=== PATIENT | female | born 1940 | race Caucasian/White ===

== ENCOUNTER 2025-04-10 12:52 | Inpatient (IN) | payer MEDICARE, BC, SELFPAY ==
[2025-04-10] VITALS (8 sets, daily range): BP systolic 145–199; BP diastolic 81–109; BMI 35.3; BMI 35.0
--- NOTE | 2025-04-10 09:53 | ED.GENMED ---
History of Present Illness
General
Chief Complaint: Abdominal Pain
Source: patient
Exam Limitations: none
Time Seen by Provider: 04/10/25 09:46
History of Present Illness
History of Present Illness:
See MDM
Past History
Past History
ED Past Medical History: Fibromyalgia, GERD, HTN, Hypercholesterolemia, NIDDM, Psychiatric (anxiety, Depression) and Other (Back pain, difficulty with balance, lightheadedness, migraines, numbness in the extremities, spinal stenosis, peripheral
vascular disease, edema, colitis, diverticulitis, diverticulosis rectal bleed, colon polyps and auditory dysfunction, physical limitations, polymyalgia rheumatica, anemia)
ED Past Surgical History: Appendectomy, Orthopedic (Laminectomy) and Other (laser treatment to eyes)
Social History
Tobacco: Non-smoker
Alcohol: None
Personal:
Living: alone
Employment: Retired
Family History
Family History: Other (Brother with diabetes, parents with alcoholism)
Phy Exam
Physical Exam
Physical Exam:
See MDM
Course
Orders/Labs/Results
Orders:
Orders
04/10/25 09:14
Electrocardiogram (*1) Urgent
Reason for Study: Tachycardia
EKG- Treatment ONCE
04/10/25 09:52
0.9% Sodium Chloride 1000 ml [Nss] 1,000 ml IV BOLUS
Ketorolac [Toradol] 30 mg IV NOW STA
CR Chest - 2 Views Urgent
Comment:
Reason For Exam: Cough, SOB
US Abdomen Complete/Upper Urgent
Comment:
Reason For Exam: RUQ pain
04/10/25 09:56
Complete Blood Count/With Diff Urgent
Comprehensive Metabolic Panel Urgent
Lipase Urgent
NT-proBNP Urgent
Troponin I Urgent
04/10/25 11:51
Azithromycin 500 mg/250 ml [Zithromax Infusion] 500 mg in 250 ml IV NOW
CefTRIAXone [Rocephin] 1,000 mg IV NOW STA
Abnormal Lab Results
04/10/25
09:56
WBC 14.0 H 10^3/uL
(4.8-10.8)
MCH 32.4 H pg
(27.0-31.0)
Abs Immat Gran (auto) 0.1 H 10^3/uL
(0-0.05)
Absolute Neuts (auto) 12.0 H 10^3/uL
(1.4-6.5)
Absolute Lymphs (auto) 0.9 L 10^3/uL
(1.2-3.4)
Absolute Monos (auto) 0.8 H 10^3/uL
(0.1-0.6)
Immature Gran % 0.9 H %
(0-0.5)
Neutrophils % 86.0 H %
(42.2-75.2)
Lymphocytes % 6.6 L %
(20.5-51.1)
Sodium 134 L mmol/L
(135-145)
Carbon Dioxide 21 L mmol/L
(22-30)
BUN 20 H mg/dl
(7-17)
Glucose 431 H mg/dl
(70-99)
Calcium 10.6 H mg/dl
(8.4-10.2)
Total Bilirubin 1.8 H mg/dl
(0.2-1.3)
04/10/25 09:56
04/10/25 09:56
Vital Signs
Initial and Last Documented VS:
Initial Vital Signs
Temp Pulse Resp BP Pulse Ox
99.4 F 124 18 153/97 91
04/10/25 09:11 04/10/25 09:11 04/10/25 09:11 04/10/25 09:11 04/10/25 09:11
Last Documented Vital Signs
Temp Pulse Resp BP Pulse Ox
99.4 F 112 17 145/81 91
04/10/25 09:11 04/10/25 11:45 04/10/25 11:45 04/10/25 09:34 04/10/25 11:45
MDM/Problems Addressed
Differential Diagnosis Includes:
Note:
CHIEF COMPLAINT(S)
Pain under the right rib area lasting since yesterday.
HISTORY OF PRESENT ILLNESS
The patient is an 84-year-old female presenting with pain under the right breast since yesterday. The onset was sudden, without any clear precipitating factors. The patient has a known history of gallbladder issues but has never been recommended for
gallbladder removal. The patient reports the pain as significant, potentially causing shallow breathing. There are concerns about low oxygen levels possibly due to pain-induced shallow breathing or an atypical pneumonia, although the primary symptom
is pain. The patient confirms a slight cough but denies any significant shortness of breath.
ADDITIONAL HISTORY OBTAINED FROM SOURCES OTHER THAN THE PATIENT
Per the healthcare provider, there is no history of water retention or congestive heart failure issues.
ALLERGIES
The patient reports an allergy to intravenous contrast.
REVIEW OF SYSTEMS
- Respiratory: Mild cough noted.
- Gastrointestinal: Abdominal pain localized under the right breast.
- General: The patient confirms incontinence.
PHYSICAL EXAM
General: Alert, Mildly uncomfortable
Skin: Warm, dry.
Head: Normocephalic, atraumatic
Neck: Appears supple, trachea midline.
Eyes, Ears, Nose, Mouth, and Throat: Oral mucosa moist.
Cardiovascular: No signs of cyanosis
Respiratory: Respirations are non-labored. Mild tachypnea but lungs clear
Abdomen: Non-distended. Point tenderness to right upper quadrant
Musculoskeletal: No deformities
Neurological: No focal neurological deficit observed.
Psychiatric: Cooperative, appropriate mood and affect.
PLAN
The plan includes the administration of intravenous fluids and pain management, starting with Toradol. Further pain management with opioids such as morphine or Dilaudid will be considered if Toradol is ineffective but used cautiously due to
potential exacerbation of gallbladder symptoms. Diagnostic imaging will include an ultrasound of the gallbladder and a chest x-ray to assess for underlying issues. Blood work will also be conducted to assist in diagnosis.
DIFFERENTIAL DIAGNOSIS
The Differential Diagnosis includes, in no particular order and is not limited to:
1. Cholecystitis
2. Gallbladder colic
3. Pneumonia
4. Pleural effusion
5. Hepatitis
6. Rib fracture
7. Kidney stone
8. Peptic ulcer disease
9. Pancreatitis
10. Hepatic abscess
EKG
My independent EKG interpretation is:
- Rhythm: Sinus tachycardia
- Heart Rate: 122 beats per minute
- [place]: Normal
- Abnormalities: No ST elevation
- Additional Findings: Left ventricular hypertrophy (LVH)
CARE-UPDATE
04/10/25 - 11:29
The patient has been diagnosed with pneumonia and will initiate antibiotic therapy. Due to persistent hypoxia requiring supplemental oxygen, admission to the hospital is warranted for further management.
Disposition:
SUMMARY OF ENCOUNTER
The patient presented to the emergency department with sudden pain under the right rib area, which began the previous day. Given the patients history of gallbladder issues and significant pain potentially leading to shallow breathing, there was
concern for low oxygen levels. A diagnosis of multifocal pneumonia was made, likely causing diaphragmatic irritation. The decision was to start the patient on antibiotics due to this diagnosis.
DISPOSITION
Admit
ASSESSMENT
The patient was assessed and diagnosed with multifocal pneumonia, leading to diaphragmatic irritation, contributing to the reported pain and potential hypoxia.
EMERGENCY TREATMENTS ADMINISTERED
Intravenous fluids and pain management with ketorolac (Toradol) were administered. Antibiotic therapy was initiated due to pneumonia.
MANAGEMENT OF THE PATIENTS CARE WAS DISCUSSED WITH
The case was discussed with the hospital team for further management upon admission.
PLAN
The patient will be admitted to the hospital for continued treatment and management of pneumonia with antibiotics and to address the hypoxia requiring supplemental oxygen. Further evaluation and monitoring will occur, with a focus on managing
gallstone-related symptoms, if necessary.
INDEPENDENT REVIEW OF LABS AND INTERPRETATION OF TESTS
- My independent EKG interpretation is: Rhythm: Sinus tachycardia; Heart Rate: 122 beats per minute; [place]: Normal; Abnormalities: No ST elevation; Additional Findings: Left ventricular hypertrophy (LVH).
- My independent interpretation of the ultrasound revealed cholelithiasis without evidence of acute cholecystitis.
MEDICATION RECONCILIATION
Intravenous Toradol was administered for pain management, and antibiotics were started to treat pneumonia. Future medication management will depend on patient response to initial treatments.
MEDICAL DECISION MAKING
- Number and Complexity of Problems Addressed: Chronic conditions affecting care include gallbladder issues. Differential diagnosis includes cholecystitis, gallbladder colic, pneumonia, pleural effusion, hepatitis, rib fracture, kidney stone, peptic
ulcer disease, pancreatitis, and hepatic abscess.
- Data:
- Category 1: Lab tests and imaging were ordered and interpreted independently.
- Category 2: Input obtained from a healthcare provider regarding the patients history.
- Category 3: Management of care discussed with hospital team for admission.
- Risk: Prescription medication was prescribed for pneumonia. Decision to escalate care by admitting the patient due to the complexity and risk of their condition, evidenced by persistent hypoxia and the necessity of hospital-level intervention.
DIAGNOSIS
- Pneumonia, unspecified organism (ICD-10: J18.9)
- Cholelithiasis without obstruction (ICD-10: K80.20)
*Pulse Oximetry
SaO2: 91
Nasal Cannula flow liters per minute: 2
Oxygen Mode of Delivery: Room air
Patient hypoxic: yes
*Critical Care Note
Total Time (30-74mins, 75-104mins- exclusive of procedures): Not Applicable
ED Attending Note
-
Portions of this chart may have been created with voice recognition software.� Occasional wrong word or��sound alike� substitutions may have occurred due to the inherent limitations of voice recognition software.
Discharge Plan
Departure
Patient Disposition: Admit
Date of Disposition: 04/10/25
Time of Disposition: 11:55
Admit to: Telemetry
Presentation/result/management discussed w/ accepting MD/DO: Hospitalist
Discharge Problem:
PNA (pneumonia), Hypoxia, Cholelithiasis
Prescriptions:
No Action
atorvastatin 10 MG tablet
10 mg PO HS
famotidine 40 MG tablet
40 mg PO BID
escitalopram oxalate 10 MG tablet
10 mg PO DAILY
losartan 50 MG tablet
50 mg PO BID
carvedilol 12.5 MG tablet
6.25 mg PO BID
glipizide 5 MG tablet extended release 24hr
5 mg PO BID
loratadine 10 MG tablet
10 mg PO DAILY
olopatadine [Pataday] 2.5 ML drops
1 drp BOTH EYES DAILY PRN (Reason: dry eye)
multivitamin with folic acid [Tab-A-Monica] 1 TABLET tablet
1 tab PO DAILY
ibuprofen 200 MG tablet
400 mg PO Q4HPRN PRN (Reason: mild pain)
acetaminophen 325 MG tablet
650 mg PO Q4HPRN PRN (Reason: mild pain)
alendronate 70 MG tablet
70 mg PO GILLIAM
amlodipine 5 MG tablet
5 mg PO DAILY
docusate sodium 100 MG capsule
100 mg PO BIDPRN PRN (Reason: constipation)
ciprofloxacin HCl [Cipro] 500 mg tablet
500 mg PO BID 10 Days Qty: 20 0RF
metronidazole 500 mg tablet
500 mg PO Q8H 10 Days Qty: 30 0RF
Referrals:
Amaya Braswell MD [Family Provider, Internal Medicine]
Interventions
Interventions:
*Risk Screen - Suicide Last Done: 04/10/25 09:14
*General Assessment Last Done: 04/10/25 09:35
*Neglect/Abuse Screening Last Done: 04/10/25 09:14
*ED- Fall Risk Assessment Last Done: 04/10/25 09:35
*ED COVID-19 Vaccine History Last Done: 04/10/25 09:35
LI-Zjkopb-Hpkkukkmfz Assessment Last Done: 04/10/25 09:35
Discharge Date and Time
Print Language: BERMUDIAN
[2025-04-10] MEDS: TORADOL 30 MG IV (09:57)
[2025-04-10] MEDS: NSS 1000 IV ×2 (09:58→18:30)
[2025-04-10 10:06] LABS: Hematocrit 41.5 % (37.0-47.0); Hemoglobin 14.3 g/dL (12.0-16.0); Mean Corp Hgb Conc. 34.5 g/dL (33.0-37.0); Mean Corpuscular Volume 94.1 fL (81.0-99.0); Nucleated Red Blood Cells % 0 %; Platelet Count 192 10^3/uL (130-400); Red Cell Dist. Width 13.1 % (11.5-14.5)
[2025-04-10 11:27] LABS: ALT (SGPT) 21 U/L (0-35); AST (SGOT) 22 U/L (14-36); Albumin 3.9 g/dl (3.5-5.0); Alkaline Phosphatase 116 U/L (38-126); Blood Urea Nitrogen 20 mg/dl (7-17); Calcium 10.6 mg/dl (8.4-10.2); Carbon Dioxide 21 mmol/L (22-30); Chloride 103 mmol/L (98-107); Estimated Creatinine Clearance 45 ml/min; Glucose 431 mg/dl (70-99); Lipase 54 U/L (23-300); Potassium 4.5 mmol/L (3.5-5.1); Sodium 134 mmol/L (135-145); Total Protein 7.4 g/dl (6.3-8.2); eGFR 54.87
[2025-04-10 11:43] LABS: Troponin I 0.024 ng/ml
[2025-04-10] MEDS: ZITHROMAX INFUSION 250 IV (11:55)
[2025-04-10] MEDS: ROCEPHIN 1000 MG IV (11:55)
--- NOTE | 2025-04-10 12:11 | HPS.HSE ---
Family Physician
-
Family Physician: Amaya Braswell
Chief Complaint
-
Right Sided Chest Pain
History of Present Illness
Patient is an 84 y/o female past medical history of peripheral vascular disease, diabetes mellitus, hypertension, anxiety/depression and cognitive impairment who presents with right sided chest pain. Patient reports pain staretd yesterday under her
right breast. She reports pain is much worse when she takes a deep breath. She reports some shortness of breath due to the pain. She reports cough but is not very productive (one episode of green mucus yesterday). She denies fevers, sweats or
chills.
Medical History
Past Medical History
Past Medical History: Reports Other
Additional Past Medical History:
Peripheral Vascular Disease
Diabetes Mellitus, Type II
Essential Hypertension
Hyperlipidemia
Anxiety/Depression
Cognitive Impairment
GERD
Polymyalgia Rheumatica
Past Surgical History: Reports Other
Additional Past Surgical History:
Right Nephrectomy
Left Total Knee Replacement
Laminectomy
Appendectomy
Social History
Tobacco: Non-smoker
Alcohol: None
Family History
Family History: Not pertinent
Allergies / Home Medications
Allergies reflects when Allergies were last updated in [employer].
Home Medications with original date entered in [employer]
Allergy/Medication List:
Allergies
Allergy/AdvReac Type Severity Reaction Status Date / Time
amoxicillin trihydrate (From Allergy upset Verified 01/21/23 10:42
Augmentin) stomach
ampicillin Allergy Itching Verified 01/21/23 10:42
Iodinated Contrast Media Allergy DYE FOR Verified 01/21/23 10:42
(Iodinated Contrast Media - MRI
IV Dye) -ANAPHYLAXIS
latex Allergy Itching Verified 01/21/23 10:42
lisinopril Allergy Coughing Verified 01/21/23 10:42
potassium clavulanate (From Allergy Upset Verified 01/21/23 10:42
Augmentin) stomach
Opofxci-NZD-YlW Reductase Allergy Body aches Verified 01/21/23 10:42
Inhibitor (Kodwwan-Cmo-Ved
Reductase Inhibitor)
environmental Allergy nasal Uncoded 05/11/21 16:39
congestions
Home Medications
atorvastatin 10 mg tablet 10 mg PO HS High cholesterol 06/22/15
escitalopram oxalate 10 mg tablet 20 mg PO DAILY Mental Health/Anxiety 06/22/15
famotidine 40 mg tablet 40 mg PO BID Gastrointestinal issue 06/22/15
losartan 50 mg tablet 50 mg PO BID Blood pressure 09/02/19
glipizide 5 mg tablet, extended release 24 hr 5 mg PO BID Diabetes 06/16/20
alendronate 70 mg tablet 70 mg PO GILLIAM bone health 04/17/21
docusate sodium 100 mg capsule 100 mg PO DAILYPRN PRN constipation 04/17/21
acetaminophen 500 mg tablet 1,000 mg PO DAILYPRN PRN mild pain 04/10/25
amlodipine 5 mg tablet 5 mg PO DAILY 04/10/25
carvedilol 6.25 mg tablet 6.25 mg PO BID 04/10/25
furosemide 20 mg tablet 20 mg PO DAILY 04/10/25
gabapentin 100 mg capsule 100 mg PO DAILY 04/10/25
ketotifen fumarate 0.025 % (0.035 %) eye drops (Zaditor) 1 drp ophthalmic (eye) DAILYPRN PRN itchy eyes 04/10/25
solifenacin 5 mg tablet 5 mg PO DAILY 04/10/25
therapeutic multivitamin 1 tab PO DAILY 04/10/25
Review of Systems
-
A 12 point ROS was completed and negative except as noted: Yes
Constitutional: Denies Fever or Chills
Respiratory: Reports See HPI
Cardiac: Denies Palpitations
Abdomen/GI: Denies Abdominal Pain, Nausea or Vomiting
Physical Exam
Vital Signs
Vital Signs
Temp Pulse Resp BP Pulse Ox
99.4 F 112 17 145/81 91
04/10/25 09:11 04/10/25 11:45 04/10/25 11:45 04/10/25 09:34 04/10/25 11:45
Physical Exam
General: Comfortable and Conversant
HEENT: Anicteric, Moist mucous membranes and Oxygen (Nasal Cannula)
Respiratory: Rales (Faint rales on the right) and Decreased Breath Sounds
Cardiac: S1/S2, Regular Rhythm and Tachycardia
GI: Soft and Non Tender
Genito-urinary: Clear Urine (Slight dark in color)
Musculoskeletal: No Clubbing and No Cyanosis
Skin: Warm and Dry
Neuro: Awake, Alert and Nonfocal/grossly intact
Psych: Calm
Laboratory Results
-
04/10/25 09:56
04/10/25 09:56
Laboratory Results
Total Bilirubin 1.8 mg/dl (0.2-1.3) H 04/10/25 09:56
AST 22 U/L (14-36) 04/10/25 09:56
ALT 21 U/L (0-35) 04/10/25 09:56
Alkaline Phosphatase 116 U/L (38-126) 04/10/25 09:56
Troponin I 0.024 ng/ml 04/10/25 09:56
Lipase 54 U/L (23-300) 04/10/25 09:56
Chest X-Ray:
Parenchymal airspace opacity within the right upper lobe and right middle lobe, most likely representing pneumonia.
Abdomen Ultrasound:
Cholelithiasis. No sonographic findings to suggest acute cholecystitis. No evidence of biliary ductal dilation.
Hepatomegaly with fatty infiltration the liver.
Data Reviewed
-
Diagnostic Radiology: Report Reviewed by me
Lab Data: Labs Reviewed by me
Impression/Plan
-
Sepsis / Acute Hypoxic Respiratory Insufficiency secondary to Pneumonia
-Continue supplemental oxygen
-Continue IVFs
-Continue ceftriaxone and azithromycin
-Check COVID
Diabetes Mellitus, Type II with Hyperglycemia
-Initial sugar in ED 431 - Give Novolog 10 units SC Now
-Patient's home medication list indicates Glipizide 5mg BID - However this medication has not been filled since May 2024
-Will resume Glipizide 5mg BID
-Check HgbA1c
-Monitor sugars and continue coverage insulin
Chronic Hypercalcemia
-Calcium level seems stable compared to previous
-Check Intact PTH
Essential Hypertension
-Continue Amlodipine, Coreg and Losartan with hold parameters
Hyperlipidemia
-Continue atorvastatin
Cognitive Impairment
-Monitor for mood/behavior changes during hospitalization
Anxiety / Depression
-Continue Lexapro
GERD
-Continue Famotidine
DVT proph: Lovenox
Code Status: Limited DNR - NO CPR, OK for Intubation is breathing worsens
--- NOTE | 2025-04-10 12:56 | W.PN.UPDATE ---
Update Note
Progress Note Update
This is an addendum to H&P written by Violeta Alston on 04/10/2025. �Patient seen and examined independently with PA.
84-year-old female past medical history of diabetes, hypertension, hyperlipidemia, fibromyalgia, polymyalgia rheumatica, GERD, anxiety/depression, migraines, spinal stenosis, peripheral artery disease, diverticulosis, cognitive impairment,
hypercalcemia, chronic amatory dysfunction, presenting for right-sided pleuritic chest pain with cough.
Patient states that she is taking glipizide twice a day but medication has not been filled as per records.�
Tachycardic on examination. �EKG shows sinus tachycardia.
Labs show leukocytosis. �Cardiac BNP 1700. �Troponin 0.024. Blood sugar 400s.�
Chest x-ray shows parenchymal airspace opacity within the right upper lobe and right middle lobe likely pneumonia.
Patient with sepsis secondary to right upper lobe pneumonia. �IV fluids. �Check COVID. �Ceftriaxone/azithromycin.
Check a1c and start ISS for now given possible glipizide noncompliance.�
--- NOTE | 2025-04-10 12:57 | CM ---
CM reviewed chart and met with pt bedside in ED. Lives alone in 2 story home, no OLESYA from garage, 1 step to BR, has stair glide to second floor BR.
Independent in ADLs and personal care, uses cane for ambulation in home and RW for longer distances.
Currently on 2 L NC, does not have home O2.
No hx SNF, Hx [facility] in past.
PCP: Georgia Braswell
Pharmacy: [address] [facility]
CM will continue to follow for any discharge planning needs.
[2025-04-10] MEDS: NOVOLOG vial 10 UNITS SC (13:02)
[2025-04-10 16:50] LABS: Glucose - Point of Care 250 mg/dl (70-99)
--- NOTE | 2025-04-10 17:00 | PTCARENOTE ---
1615 Pt arrived from ER via stretcher,alert and oriented x 3. Pt c/o shortness of breath and mention having some pain under right breast area,
when takes deep breath in.
Pt's pulse ox 93% on O2 4L via n/c. Noted BP 199/97, on heart monitor (heart rate 128). Pt mention has not taken her BP meds this am prior to ER.
Dr. Conn notified and ordered Norvasc 5 mg po x 1 now. Recheck BP manual 160/90, continue to monitor pt closely.
[2025-04-10 17:18] LABS: COVID-19 Antigen Negative (Negative)
[2025-04-10] MEDS: NORVASC 5 MG PO (17:20)
[2025-04-10] MEDS: LOVENOX 40 MG SC (18:29)
[2025-04-10] MEDS: TYLENOL 650 MG PO ×2 (18:31→23:29)
[2025-04-10] MEDS: NOVOLOG FLEXPEN-MODERATE RESISTANCE 5 UNITS SC (18:36)
[2025-04-10] MEDS: COREG 6.25 MG PO (19:59)
[2025-04-10] MEDS: MUCINEX 600 MG PO (19:59)
[2025-04-10] MEDS: GLUCOTROL XL (EXTENDED RELEASE) 5 MG PO (19:59)
[2025-04-10] MEDS: LIPITOR 10 MG PO (20:00)
[2025-04-10] MEDS: COZAAR 50 MG PO (20:00)
[2025-04-10 21:21] LABS: Glucose - Point of Care 265 mg/dl (70-99)
[2025-04-10] MEDS: MORPHINE SULFATE 1 MG IV (21:54)
[2025-04-11] VITALS (8 sets, daily range): BP systolic 99–174; BP diastolic 65–94; PULSE 102; O2SAT 92; BMI 35.1
[2025-04-11] MEDS: NSS 1000 IV ×3 (01:43→21:45)
[2025-04-11] MEDS: TYLENOL 650 MG PO ×2 (03:16→15:02)
[2025-04-11] MEDS: SAFETUSSIN DM (SUGAR/ALCOHOL FREE) 100 MG PO ×2 (03:48→18:08)
[2025-04-11 05:59] LABS: Hematocrit 35.3 % (37.0-47.0); Hemoglobin 12.2 g/dL (12.0-16.0); Mean Corp Hgb Conc. 34.6 g/dL (33.0-37.0); Mean Corpuscular Volume 95.1 fL (81.0-99.0); Platelet Count 150 10^3/uL (130-400); Red Cell Dist. Width 13.1 % (11.5-14.5)
[2025-04-11 06:25] LABS: Blood Urea Nitrogen 18 mg/dl (7-17); Calcium 9.2 mg/dl (8.4-10.2); Carbon Dioxide 23 mmol/L (22-30); Chloride 111 mmol/L (98-107); Estimated Creatinine Clearance 49 ml/min; Glucose 250 mg/dl (70-99); Magnesium 2.1 mg/dl (1.6-2.3); Potassium 4.1 mmol/L (3.5-5.1); Sodium 137 mmol/L (135-145); eGFR > 60.00
[2025-04-11 06:36] LABS: Vitamin D, 25-OH*** 20.8 ng/mL (30-80)
[2025-04-11 08:23] LABS: Glucose - Point of Care 219 mg/dl (70-99)
[2025-04-11] MEDS: MUCINEX 600 MG PO ×2 (08:40→21:48)
[2025-04-11] MEDS: PEPCID 20 MG PO (08:40)
[2025-04-11] MEDS: COZAAR 50 MG PO ×2 (08:40→21:48)
[2025-04-11] MEDS: NORVASC 5 MG PO (08:40)
[2025-04-11] MEDS: LEXAPRO 20 MG PO (08:40)
[2025-04-11] MEDS: ZITHROMAX 500 MG PO (08:40)
[2025-04-11] MEDS: NEURONTIN 100 MG PO (08:40)
[2025-04-11] MEDS: GLUCOTROL XL (EXTENDED RELEASE) 5 MG PO ×2 (08:40→21:48)
[2025-04-11] MEDS: COREG 6.25 MG PO ×2 (08:40→21:46)
[2025-04-11] MEDS: NOVOLOG FLEXPEN-MODERATE RESISTANCE 3 UNITS SC ×2 (09:41→18:07)
[2025-04-11 11:00] LABS: Glycohemoglobin (HgbA1c) 8.7 % (4.0-5.6)
[2025-04-11] MEDS: ROCEPHIN 1000 MG IV (12:22)
[2025-04-11] MEDS: STERILE WATER FOR INJECTION 10 ML IV (12:22)
[2025-04-11 12:38] LABS: Glucose - Point of Care 268 mg/dl (70-99)
[2025-04-11] MEDS: NOVOLOG FLEXPEN-MODERATE RESISTANCE 5 UNITS SC (13:17)
--- NOTE | 2025-04-11 14:32 | W.PN.HOSP.TC ---
Addendum entered and electronically signed by Shelton Bhagat MD 04/11/25 17:59:
Also Cholelithiasis without Cholecystitis
Original Note:
Today's Communication/Plan
-
continue Rocephin/Azithromycin
consider pulm or ID consult pending clinical course over next 24-48 hrs
slow IVF
repeat CXR
Assessment / Plan
Assessment / Plan
Sepsis / Acute Hypoxic Respiratory Insufficiency secondary to Pneumonia
-Continue supplemental oxygen, remains on 4 L/M with SaO2 92%
-Continue IVFs
-Continue ceftriaxone and azithromycin
COVID - Negative
recheck CXR in AM
Diabetes Mellitus, Type II with Hyperglycemia
-Initial sugar in ED 431 - Give Novolog 10 units SC Now
-Patient's home medication list indicates Glipizide 5mg BID - However this medication has not been filled since May 2024
-Will resume Glipizide 5mg BID
-HgbA1c 8.7%
-Monitor sugars and continue coverage insulin
glu 219-268, consider adding low dose Lantus
Chronic Hypercalcemia
-Calcium level seems stable compared to previous
-Intact PTH 270.6
Essential Hypertension
-Continue Amlodipine, Coreg and Losartan with hold parameters
Hyperlipidemia
-Continue atorvastatin
Cognitive Impairment
-Monitor for mood/behavior changes during hospitalization
Anxiety / Depression
-Continue Lexapro
GERD
-Continue Famotidine
DVT proph: Lovenox
Code Status: Limited DNR - NO CPR, OK for Intubation is breathing worsens
Call placed and discussed with dgtDarlyn MD
Anticipated Discharge: > 48 hours
Subjective/Interval History
-
Date of Service: April 11, 2025
Awake, alert, conversant
Objective Data
-
Labs:
Laboratory Results
04/11/25
05:15
WBC 9.2
Hgb 12.2
Hct 35.3 L
Plt Count 150 D
Sodium 137
Potassium 4.1
Chloride 111 H
Carbon Dioxide 23
BUN 18 H
Creatinine 0.9
Glucose 250 H
Calcium 9.2
Vital Signs:
Vital Signs
Temp Pulse Resp BP Pulse Ox
98.8 F 111 22 174/88 92
04/11/25 07:30 04/11/25 07:30 04/11/25 07:30 04/11/25 07:30 04/11/25 08:00
I&O
04/10/25 04/11/25 04/12/25
06:59 06:59 06:59
Intake Total 1000 / 1000
Balance 1000 / 1000
Review of Systems
-
History Source: Patient and Family (reviewwed with Darlyn merlos by phone)
Constitutional: Denies Fever
EENT: Reports No Symptoms Reported
Respiratory: Reports Cough
Cardiac: Reports No Symptoms; Denies Chest Pain
Abdomen/GI: Reports No Symptoms
Genitourinary: Reports No Symptoms
Neuro: Reports No Symptoms
Physical Exam
-
General: Well Developed, Well Nourished, No Apparent Distress and Obese
HEENT: Normocephalic, Atraumatic and Moist Mucous Membranes
Respiratory: Decreased Breath Sounds (Rt mid lung)
Cardiac: Regular Rhythm and S1/S2
GI: Soft, Nontender and Nondistended
Musculoskeletal: No Clubbing, No Cyanosis and No Edema
Neuro: Awake, Alert and Oriented
[2025-04-11] MEDS: MORPHINE SULFATE 1 MG IV (17:17)
[2025-04-11 17:28] LABS: Glucose - Point of Care 211 mg/dl (70-99)
[2025-04-11] MEDS: LOVENOX 40 MG SC (18:07)
[2025-04-11 21:48] LABS: Glucose - Point of Care 180 mg/dl (70-99)
[2025-04-11] MEDS: LIPITOR 10 MG PO (21:48)
[2025-04-11] MEDS: TORADOL 15 MG IV (22:38)
[2025-04-12 03:51] VITALS: BP 155/88
[2025-04-12] MEDS: NSS 1000 IV (05:43)
[2025-04-12 06:00] VITALS: BMI 36.8
[2025-04-12 07:32] VITALS: BP 165/90
--- NOTE | 2025-04-12 07:54 | W.PN.HOSP.TC ---
Addendum entered and electronically signed by Loco Ortiz MD 04/12/25 17:09:
I called patient's daughter, Dr. Yamileth Mathis just now and updated her on patient's current management including the fact that we are starting therapeutic Lovenox today. I answered all of her questions and concerns to satisfaction.
Original Note:
Today's Communication/Plan
-
Therapeutic Lovenox
See plan
Assessment / Plan
Assessment / Plan
Physical Exam
General: Well Developed, Well Nourished, No Apparent Distress and Obese
HEENT: Normocephalic, Atraumatic and Moist Mucous Membranes
Respiratory: Decreased Breath Sounds (Rt mid lung), but otherwise clear to auscultation bilaterally
Cardiac: Regular Rhythm and S1/S2
GI: Soft, Nontender and Nondistended. Positive bowel sounds.
Musculoskeletal: No Cyanosis and No Edema
Neuro: Awake, Alert and Oriented
Assessment/Plan
Sepsis / Acute Hypoxic Respiratory Insufficiency secondary to Pneumonia
-Continue supplemental oxygen, remains on 4 L/M with SaO2 92%
-Continue IVFs
-Continue ceftriaxone and azithromycin
-COVID - Negative
-Repeat CXR with persistent pneumonia
-Given elevated D-Dimer, check V/Q scan and start empiric therapeutic Lovenox today
-CT Chest without IV contrast in the morning
Renal Cell Cancer around 2017
History of DVT decades ago when on OCPs
Elevated AST
Elevated ALT
-Not present on admission
-Hold Tylenol for now and recheck AST and ALT
-Abdominal Ultrasound on admission showed hepatomegaly with fatty infiltration the liver and two left hepatic lobe simple cysts.
-Follow CMP
Sinus Tachycardia
-Suspected from pleuritic chest pain, pneumonia
-Given concern for PE, started empiric therapeutic Lovenox
Diabetes Mellitus, Type II with Hyperglycemia
-Initial sugar in ED 431 - Was given Novolog 10 units SC
-Patient's home medication list indicates Glipizide 5mg BID - However this medication has not been filled since May 2024
-Continue Glipizide 5mg BID
-HgbA1c 8.7%
-Monitor sugars and continue coverage insulin
glu [id number], consider adding low dose Lantus
Chronic Hypercalcemia
-Calcium level seems stable compared to previous
-Intact PTH 270.6
Essential Hypertension
-Continue Amlodipine, Coreg and Losartan with hold parameters
Hyperlipidemia
-Continue atorvastatin
Cognitive Impairment
-Monitor for mood/behavior changes during hospitalization
Anxiety / Depression
-Continue Lexapro
GERD
-Continue Famotidine
Cholelithiasis on imaging
DVT proph: Lovenox
Code Status: Limited DNR - NO CPR, OK for Intubation is breathing worsens
Call placed and discussed with dgt, Yamileth Mathis MD
Anticipated Discharge: > 48 hours
Subjective/Interval History
-
Date of Service: April 12, 2025
Patient was seen and examined. She reported continued right-sided pleuritic chest pain, she also reports eating and drinking fine, denied any other new significant symptoms or complaints.
Objective Data
-
Labs:
Laboratory Results
04/12/25
06:00
WBC Pending
Hgb Pending
Hct Pending
Plt Count Pending
Sodium Pending
Potassium Pending
Chloride Pending
Carbon Dioxide Pending
BUN Pending
Creatinine Pending
Glucose Pending
Calcium Pending
Vital Signs:
Vital Signs
Temp Pulse Resp BP Pulse Ox
99.3 F 107 18 155/88 93
04/12/25 03:51 04/12/25 03:51 04/12/25 03:51 04/12/25 03:51 04/12/25 03:51
I&O
04/11/25 04/12/25 04/13/25
06:59 06:59 06:59
Intake Total 1000 / 1000 1460 / 1460
Balance 1000 / 1000 1460 / 1460
[2025-04-12] MEDS: MUCINEX 600 MG PO ×2 (08:50→19:53)
[2025-04-12] MEDS: ZITHROMAX 500 MG PO (08:50)
[2025-04-12] MEDS: LEXAPRO 20 MG PO (08:50)
[2025-04-12] MEDS: GLUCOTROL XL (EXTENDED RELEASE) 5 MG PO ×2 (08:51→19:53)
[2025-04-12] MEDS: NORVASC 5 MG PO (08:51)
[2025-04-12] MEDS: PEPCID 20 MG PO (08:51)
[2025-04-12] MEDS: NEURONTIN 100 MG PO (08:51)
[2025-04-12] MEDS: COZAAR 50 MG PO ×2 (08:52→19:53)
[2025-04-12] MEDS: COREG 6.25 MG PO ×2 (08:52→19:52)
[2025-04-12 09:35] LABS: Hematocrit 35.6 % (37.0-47.0); Hemoglobin 12.2 g/dL (12.0-16.0); Mean Corp Hgb Conc. 34.3 g/dL (33.0-37.0); Mean Corpuscular Volume 96.0 fL (81.0-99.0); Nucleated Red Blood Cells % 0 %; Platelet Count 164 10^3/uL (130-400); Red Cell Dist. Width 13.3 % (11.5-14.5)
[2025-04-12 09:52] LABS: Glucose - Point of Care 246 mg/dl (70-99)
[2025-04-12 10:09] LABS: ALT (SGPT) 145 U/L (0-35); AST (SGOT) 130 U/L (14-36); Blood Urea Nitrogen 18 mg/dl (7-17); Calcium 9.9 mg/dl (8.4-10.2); Carbon Dioxide 22 mmol/L (22-30); Chloride 113 mmol/L (98-107); Estimated Creatinine Clearance 51 ml/min; Glucose 244 mg/dl (70-99); Potassium 3.8 mmol/L (3.5-5.1); Sodium 138 mmol/L (135-145); eGFR > 60.00
[2025-04-12] MEDS: NOVOLOG FLEXPEN-MODERATE RESISTANCE 3 UNITS SC ×2 (10:37→17:22)
[2025-04-12 11:20] VITALS: BP 162/83
--- NOTE | 2025-04-12 12:09 | CM ---
CM reviewed chart, patient seen bedside. CM discussed therapy recommendations of home therapy versus SNF, patient would like to return home upon discharge. Provided patient with local home health agencies, patient agreeable to [facility] to [facility]
liaison with referral. Patient currently on O2, does not wear home O2. CM will continue to follow for all discharge planning needs.
Plan; home with referral to [facility], watch for O2 needs
[2025-04-12 12:25] LABS: Glucose - Point of Care 212 mg/dl (70-99)
[2025-04-12] MEDS: STERILE WATER FOR INJECTION 10 ML IV (12:39)
[2025-04-12] MEDS: ROCEPHIN 1000 MG IV (12:39)
[2025-04-12] MEDS: TYLENOL 650 MG PO (12:44)
--- NOTE | 2025-04-12 13:05 | CON.PUL ---
Consultation
Consultation Request
Date/Time Consultation Requested: 04/12/2025
Date/Time Consultation Performed: 04/12/2025
Requesting Provider: Dr. Myers
Performing Provider: Dr. Calvin Honeycutt
Reason for Consultation: Hypoxemic respiratory failure/Pleuritic type chest pain
Medical History
-
History of Present Illness:
84-year-old woman with past medical history significant for peripheral vascular disease, type 2 diabetes, hypertension, anxiety/depression, cognitive impairment who presents with right-sided chest pain on 04/10/2025. Pain started around the right
breast area the day prior to admission. Pain is sharp and worse with deep inspiration.
Pain is significant with deep inspiration and even palpation.
She reports exertional shortness of breath due to chest pain.
She has a dry cough without hemoptysis. She had 1 episode of green phlegm the last few days.
Denies any fevers, night sweats, chills or prior episodes.
Denies history of clotting.
Not on anticoagulation.
Past Medical History
Past Medical History: Other (See assessment and plan)
Social History
Tobacco: Non-smoker
Alcohol: None
Family History
Family History: Reviewed & Not Pertinent and Other (History of clots in the family)
Allergies / Home Medications
Allergies
Allergy/AdvReac Type Severity Reaction Status Date / Time
amoxicillin trihydrate (From Allergy upset Verified 01/21/23 10:42
Augmentin) stomach
ampicillin Allergy Itching Verified 01/21/23 10:42
Iodinated Contrast Media Allergy DYE FOR Verified 01/21/23 10:42
(Iodinated Contrast Media - MRI
IV Dye) -ANAPHYLAXIS
latex Allergy Itching Verified 01/21/23 10:42
lisinopril Allergy Coughing Verified 01/21/23 10:42
potassium clavulanate (From Allergy Upset Verified 01/21/23 10:42
Augmentin) stomach
Ueghlec-SVD-ZaF Reductase Allergy Body aches Verified 01/21/23 10:42
Inhibitor (Gzsmwwe-Ztd-Zhd
Reductase Inhibitor)
environmental Allergy nasal Uncoded 05/11/21 16:39
congestions
Home Medications
�Medication �Instructions �Recorded �Confirmed �Last Taken �Type
atorvastatin 10 mg tablet 10 mg PO HS High cholesterol 06/22/15 04/10/25 04/09/25 History
escitalopram oxalate 10 mg tablet 20 mg PO DAILY Mental 06/22/15 04/10/25 04/09/25 History
Health/Anxiety
famotidine 40 mg tablet 40 mg PO BID Gastrointestinal issue 06/22/15 04/10/25 04/09/25 History
losartan 50 mg tablet 50 mg PO BID Blood pressure 09/02/19 04/10/25 04/09/25 History
glipizide 5 mg tablet, extended 5 mg PO BID Diabetes 06/16/20 04/10/25 04/09/25 History
release 24 hr
alendronate 70 mg tablet 70 mg PO GILLIAM bone health 04/17/21 04/10/25 04/04/25 History
docusate sodium 100 mg capsule 100 mg PO DAILYPRN PRN constipation 04/17/21 04/10/25 04/09/25 History
acetaminophen 500 mg tablet 1,000 mg PO DAILYPRN PRN mild pain 04/10/25 04/10/25 04/09/25 History
amlodipine 5 mg tablet 5 mg PO DAILY Blood Pressure 04/10/25 04/10/25 04/09/25 History
carvedilol 6.25 mg tablet 6.25 mg PO BID Heart 04/10/25 04/10/25 04/09/25 History
Disease/Condition
furosemide 20 mg tablet 20 mg PO DAILY Fluid 04/10/25 04/10/25 04/09/25 History
Retention/Swelling
gabapentin 100 mg capsule 100 mg PO DAILY Pain 04/10/25 04/10/25 04/09/25 History
ketotifen fumarate 0.025 % (0.035 1 drp ophthalmic (eye) DAILYPRN 04/10/25 04/10/25 Unknown History
%) eye drops (Zaditor) PRN itchy eyes
solifenacin 5 mg tablet 5 mg PO DAILY Urinary Issue 04/10/25 04/10/25 04/09/25 History
therapeutic multivitamin 1 tab PO DAILY Supplement 04/10/25 04/10/25 04/09/25 History
Review of Systems
-
History Source: Patient
All other systems: Negative unless noted
Vitals / Labs / Diagnostic Testing
Vital Signs
Temp Pulse Resp BP Pulse Ox
99.4 F 107 20 162/83 94
04/12/25 11:20 04/12/25 11:20 04/12/25 11:20 04/12/25 11:20 04/12/25 11:20
Lab Data
04/12/25 08:45
04/12/25 08:45
Diagnostic Testing:
Physical Exam
-
HEENT: Normocephalic
Cardiovascular: S1/S2
Respiratory: Non-Labored Respirations
GI: Soft and Non Distended
Neurology: Awake, Alert and No Motor Deficits
Skin: Warm
General: Comfortable
Assessment
-
84-year-old woman with past medical history noted, admitted with right-sided pleuritic type chest pain, leukocytosis. Started on antibiotics on 04/10/2025. There is no reports of fevers or worsening phlegm production. Despite antibiotics
complaining of significant pleuritic type chest pain we were consulted for evaluation/concern for thromboembolic disease. Patient is allergic to dye.
Hypoxemic respiratory insufficiency-shortness of breath-initially on low rate supplemental oxygen mostly weaned off. Continue for comfort.
Right-sided pleuritic type chest pain-differential diagnosis includes pneumonia/pulmonary infarct less likely malignant.
Chest x-ray 04/10/2025 and 04/12/2025:reviewed, Right upper lobe pleural-based infiltrate.
Covid negative
Hyperglycemia
Abnormal LFTs
Cholelithiasis. No sonographic findings to suggest acute cholecystitis. No evidence of biliary ductal dilation.
Hepatomegaly with fatty infiltration the liver.
Conditions present prior admission:
PMR
GERD
Anxiety and depression
Cognitive impairment
Hypertension
Type 2 diabetes
Peripheral vascular disease
History of right nephrectomy
Left total knee replacement
Laminectomy
Prior appendectomy
Assessment and plan:
-
Clinical picture certainly could be related to pneumonia, including the pleuritic type chest pain.
Interestingly, there was rapid resolution of leukocytosis, patient has been afebrile without significant sputum production.
Differential diagnosis may include pulmonary infarct as well.
Sinus tachycardia improved
Not hypotensive
Pulmonary supplemental oxygen for comfort.
No prior history of clots
Patient lives independently and ambulates with a walker.
Denies prior history of pulmonary disease.
-
Agree with echocardiogram to assess RV function
Obtain lower extremity Dopplers
Obtain P-zmexb-dyaf be helpful only if negative. If significantly elevated start empirical Lovenox until clot has ruled out.
Ultimately, if Dopplers are negative patient will likely require VQ scan.
CT of the chest without IV contrast will be helpful to evaluate lung parenchyma better. Will also order once LE Doppler performed.
-
Not unreasonable to continue antibiotics for now to treat Community acquired pneumonia.
Most recent chest x-ray without pneumothorax, pleural effusion. Stable pleural-based infiltrate 04/12/2025
No significant phlegm production
Relatively clear lung exam
Follow fever curve
Follow cultures
-
Continue with analgesia per Primary team.
-
Abnormal LFTs: Fatty liver on ultrasound
Benign abdominal exam
Wait for echocardiogram
-
Hypoglycemia per primary team
Chronic hypercalcemia noted
-
DVT prophylaxis with Lovenox
Will follow
--- NOTE | 2025-04-12 13:10 | PTOTSP ---
Speech Therapy
At bedside, oralpharyngeal swallow appeared WFL. Adequate oral containment, good oral clearance, HLE present upon palpation, pt denied globus sensation, no overt s/s of aspiration, no wet vocal quality or breath changes. Pt with acute risk factors
for developing aspiration given diagnosis of sepsis and acute hypoxic respiratory insufficiency secondary to PNA. Most recent CXR is suggestive of pneumonia within the right upper and right middle lobes.
Recommendations:
1. ST to follow for tolerance of regular solids and thin liquids.
2. Meds as best tolerated
3. Standard aspiration precautions
4. Consideration for VSE to rule out silent aspiration if concern for such. No VSE completed.
[ End ]
--- NOTE | 2025-04-12 13:32 | VNURNOTE ---
Home Health Liaison met with patient at bedside to discuss [facility] nurse/therapy, visits, schedule and homebound status. Patient is agreeable and understands that visits at home will be 2-3 x per week to assess and teach medical management. Patient
is aware that [facility] will contact them for start of care in 1-2 days after discharge from . Watching for new home 02 needs.
[facility] referral completed in [facility].
[2025-04-12] MEDS: NOVOLOG FLEXPEN-MODERATE RESISTANCE SC (15:53)
[2025-04-12 16:27] VITALS: BP 159/89
[2025-04-12 16:28] LABS: D-Dimer 3.56 ug/mlFEU (0.00-0.50)
[2025-04-12 17:03] LABS: Glucose - Point of Care 232 mg/dl (70-99)
[2025-04-12] MEDS: LOVENOX 100 MG SC (17:23)
[2025-04-12] MEDS: LIPITOR 10 MG PO (19:53)
[2025-04-12 20:11] VITALS: BP 157/103
[2025-04-12 21:46] LABS: Glucose - Point of Care 240 mg/dl (70-99)
[2025-04-12 23:27] VITALS: BP 176/97
[2025-04-13] VITALS (9 sets, daily range): BP systolic 148–186; BP diastolic 80–102; PULSE 105; O2SAT 93; BMI 37.0
[2025-04-13] MEDS: LOPRESSOR 2.5 MG IV ×2 (04:21→05:07)
[2025-04-13] MEDS: LOVENOX 100 MG SC ×2 (05:11→18:57)
--- NOTE | 2025-04-13 07:28 | W.PN.HOSP.TC ---
Today's Communication/Plan
-
Continue antibiotics
Continue to monitor on telemetry
Assessment / Plan
Assessment / Plan
Physical Exam
General: Well Developed, Well Nourished, No Apparent Distress and Obese
HEENT: Normocephalic, Atraumatic and Moist Mucous Membranes
Respiratory: Decreased Breath Sounds (Rt mid lung), but otherwise clear to auscultation bilaterally
Cardiac: Regular Rhythm and S1/S2
GI: Soft, Nontender and Nondistended. Positive bowel sounds.
Musculoskeletal: No Cyanosis and No Edema
Neuro: Awake, Alert and Oriented
Assessment/Plan
Sepsis / Acute Hypoxic Respiratory Insufficiency secondary to Pneumonia
-Continue supplemental oxygen, remains on 4 L/M with SaO2 92%
-Continue IVFs
-Continue ceftriaxone and azithromycin
-COVID - Negative
-Repeat CXR with persistent pneumonia
-Given elevated D-Dimer, check V/Q scan and start empiric therapeutic Lovenox today
-CT Chest without IV contrast showed Severe multifocal pneumonia on the right. The small right pleural effusion suggestive of pleuritis. May explain pleuritic type chest pain.
-Patient has rapid resolution of leukocytosis, patient has been afebrile without significant sputum production.
Renal Cell Cancer around 2017
History of DVT decades ago when on OCPs
Elevated AST
Elevated ALT
-Not present on admission
-Hold Tylenol for now and recheck AST and ALT
-Abdominal Ultrasound on admission showed hepatomegaly with fatty infiltration the liver and two left hepatic lobe simple cysts.
-Follow CMP
Sinus Tachycardia
-Suspected from pleuritic chest pain, pneumonia
-Given concern for PE, started empiric therapeutic Lovenox -- V/Q scan suggest low probability for PE -- so will now hold/stop therapeutic Lovenox
-TSH normal
-No fever
-Appreciate cardiology to see whether a possible ACS or CHF exacerbation could be contributing
Essential Hypertension
-Continue Amlodipine, Coreg and Losartan with hold parameters
-Coreg increased on 04/13/25 for better control of heart rate and blood pressure
Diabetes Mellitus, Type II with Hyperglycemia
-Initial sugar in ED 431 - Was given Novolog 10 units SC
-Patient's home medication list indicates Glipizide 5mg BID - However this medication has not been filled since May 2024
-Continue Glipizide 5mg BID
-HgbA1c 8.7%
-Monitor sugars and continue coverage insulin
glu [id number], consider adding low dose Lantus
-Appreciate Diabetes DESKTOP OPERATOR consult
Chronic Hypercalcemia
-Calcium level seems stable compared to previous
-Intact PTH 270.6
-Still supplement Vitamin D 'For individuals with PHPT and a serum vitamin D level (25-hydroxyvitamin D [25(OH)D] <=0 ng/mL [75 nmol/L]), we suggest vitamin D supplementation (Grade 2C). The goal is to maintain a 25(OH)D level >30 ng/mL (75 nmol/L)
but <50 ng/mL (125 nmol/L). In such individuals, monitoring of serum and urine calcium to identify worsening hypercalcemia and/or hypercalciuria is necessary.'
-Will start oral Vitamin D3 600 IU daily (15 to 20 micrograms daily)
Hyperlipidemia
-Continue atorvastatin
Cognitive Impairment
-Monitor for mood/behavior changes during hospitalization
Anxiety / Depression
-Continue Lexapro
GERD
-Continue Famotidine
Cholelithiasis on imaging
DVT proph: Lovenox
Code Status: Limited DNR - NO CPR, OK for Intubation is breathing worsens
Call placed and discussed with dgt, Yamileth Mathis MD
Anticipated Discharge: > 48 hours
Subjective/Interval History
-
Date of Service: April 13, 2025
Patient was seen and examined. She remained with right-sided pleuritic chest pain overnight.
Objective Data
-
Labs:
Laboratory Results
04/13/25
06:41
WBC Pending
Hgb Pending
Hct Pending
Plt Count Pending
Sodium Pending
Potassium Pending
Chloride Pending
Carbon Dioxide Pending
BUN Pending
Creatinine Pending
Glucose Pending
Calcium Pending
Total Bilirubin Pending
AST Pending
ALT Pending
Alkaline Phosphatase Pending
Vital Signs:
Vital Signs
Temp Pulse Resp BP Pulse Ox
97.6 F 103 18 180/99 94
04/13/25 03:50 04/13/25 05:07 04/13/25 03:50 04/13/25 05:07 04/13/25 03:50
I&O
04/12/25 04/13/25 04/14/25
06:59 06:59 06:59
Intake Total 1460 / 1460 1140 / 1140
Balance 1460 / 1460 1140 / 1140
[2025-04-13 08:10] LABS: Glucose - Point of Care 175 mg/dl (70-99)
[2025-04-13 08:13] LABS: Hematocrit 36.8 % (37.0-47.0); Hemoglobin 12.5 g/dL (12.0-16.0); Mean Corp Hgb Conc. 34.0 g/dL (33.0-37.0); Mean Corpuscular Volume 95.3 fL (81.0-99.0); Nucleated Red Blood Cells % 0 %; Platelet Count 212 10^3/uL (130-400); Red Cell Dist. Width 13.3 % (11.5-14.5)
[2025-04-13 08:21] LABS: Troponin I 0.015 ng/ml
[2025-04-13 08:22] LABS: ALT (SGPT) 131 U/L (0-35); AST (SGOT) 75 U/L (14-36); Albumin 3.3 g/dl (3.5-5.0); Alkaline Phosphatase 162 U/L (38-126); Blood Urea Nitrogen 15 mg/dl (7-17); Calcium 9.9 mg/dl (8.4-10.2); Carbon Dioxide 21 mmol/L (22-30); Chloride 112 mmol/L (98-107); Estimated Creatinine Clearance 57 ml/min; Glucose 175 mg/dl (70-99); Magnesium 2.2 mg/dl (1.6-2.3); Potassium 3.8 mmol/L (3.5-5.1); Sodium 140 mmol/L (135-145); Total Protein 6.4 g/dl (6.3-8.2); eGFR > 60.00
[2025-04-13] MEDS: LEXAPRO 20 MG PO (08:36)
[2025-04-13] MEDS: NEURONTIN 100 MG PO (08:36)
[2025-04-13] MEDS: MUCINEX 600 MG PO ×2 (08:37→19:53)
[2025-04-13] MEDS: COZAAR 50 MG PO ×2 (08:37→20:01)
[2025-04-13] MEDS: PEPCID 20 MG PO (08:37)
[2025-04-13] MEDS: COREG 12.5 MG PO ×2 (08:37→20:02)
[2025-04-13] MEDS: NOVOLOG FLEXPEN-MODERATE RESISTANCE 1 UNITS SC (08:38)
[2025-04-13] MEDS: GLUCOTROL XL (EXTENDED RELEASE) 5 MG PO ×2 (08:41→19:52)
[2025-04-13] MEDS: NORVASC 5 MG PO (08:41)
[2025-04-13] MEDS: ZITHROMAX 500 MG PO (08:41)
--- NOTE | 2025-04-13 09:39 | CON.CAR ---
Addendum entered and electronically signed by Thanh Swann MD 04/13/25 15:36:
I saw and examined the patient.
Dr Walker's note was reviewed and I agree with the note.
Comment: 84-year-old white female, with a past medical history of essential hypertension, hyperlipidemia, depression, anxiety, polymyalgia rheumatica who presented with complaint of right-sided chest pain. She was found to have significant right
sided PNA. This is likely cause of CP; troponins have been flat but awaiting final troponin.
- Abx for PNA
- Resume outpatient lasix when able
We will sign off please call with questions/concerns.
Original Note:
Consultation
Consultation Request
Date/Time Consultation Requested: 04/13/2025
Date/Time Consultation Performed: 04/13/2025
Medical History
-
Chief Complaint: Right-sided chest pain
History of Present Illness:
Patient is a pleasant, 84-year-old white female, with a past medical history of essential hypertension, hyperlipidemia, depression, anxiety, polymyalgia rheumatica who presented with complaint of right-sided chest pain. She states that she was
having some cough and, was producing some sputum with cough which was greenish only 1 time but usually white in color, and then out of the blue she developed pain on the right side of her chest below her right breast. She said that the pain is
severe, rates 8/10 in intensity, related with movement and deep inspiration with no relief with any medication.She reports some shortness of breath associated with the chest pain but denies any fever, night sweats, nausea, vomiting or any other body
aches associated with it.
She denies any recent travel, any history of blood clots, any cardiac issues in the past, any fall, or any body aches. She uses a cane for walking and describes herself as a very active person, independent in her daily activities and lives alone.
Review of systems is negative.
She is not on any blood thinners and denies any personal or family history of any cardiac issues.
She has been oxygen dependent since arrival to the hospital which is new for her, her blood pressures have also been on the higher side in hospital but she says that she is compliant with her medications except for the day when she came to the
hospital she did not take her medications. She has no devices placed in her heart.
Past Medical History
Past Medical History: GERD, HTN, Hypercholesterolemia, NIDDM, Psychiatric (depression/anxiety) and Other (migraines, spinal stenosis, peripheral artery disease, diverticulosis, cognitive impairment, chronic ambulatory dysfunction)
Past Surgical History: Other (Right Nephrectomy Left Total Knee Replacement Laminectomy Appendectomy)
Social History
Tobacco: Non-Smoker
Alcohol: None
Drug: None
Personal:
Living: Other ( after 56 years of marriage. Has two adult children and 4 grandchildren. Lives alone. Family is not local. Has neighbor who helps her. 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
Employment: Retired
Family History
Family History: Reviewed & Not Pertinent
Allergies / Home Medications
Allergy/AdvReac Type Severity Reaction Status Date / Time
amoxicillin trihydrate (From Allergy upset Verified 01/21/23 10:42
Augmentin) stomach
ampicillin Allergy Itching Verified 01/21/23 10:42
Iodinated Contrast Media Allergy DYE FOR Verified 01/21/23 10:42
(Iodinated Contrast Media - MRI
IV Dye) -ANAPHYLAXIS
latex Allergy Itching Verified 01/21/23 10:42
lisinopril Allergy Coughing Verified 01/21/23 10:42
potassium clavulanate (From Allergy Upset Verified 01/21/23 10:42
Augmentin) stomach
Pcuevsh-LTF-PfP Reductase Allergy Body aches Verified 01/21/23 10:42
Inhibitor (Pjgibht-Gbj-Mkk
Reductase Inhibitor)
environmental Allergy nasal Uncoded 05/11/21 16:39
congestions
�Medication �Instructions �Recorded �Confirmed �Type
atorvastatin 10 mg tablet 10 mg PO HS High cholesterol 06/22/15 04/10/25 History
escitalopram oxalate 10 mg tablet 20 mg PO DAILY Mental 06/22/15 04/10/25 History
Health/Anxiety
famotidine 40 mg tablet 40 mg PO BID Gastrointestinal issue 06/22/15 04/10/25 History
losartan 50 mg tablet 50 mg PO BID Blood pressure 09/02/19 04/10/25 History
glipizide 5 mg tablet, extended 5 mg PO BID Diabetes 06/16/20 04/10/25 History
release 24 hr
alendronate 70 mg tablet 70 mg PO GILLIAM bone health 04/17/21 04/10/25 History
docusate sodium 100 mg capsule 100 mg PO DAILYPRN PRN constipation 04/17/21 04/10/25 History
acetaminophen 500 mg tablet 1,000 mg PO DAILYPRN PRN mild pain 04/10/25 04/10/25 History
amlodipine 5 mg tablet 5 mg PO DAILY Blood Pressure 04/10/25 04/10/25 History
carvedilol 6.25 mg tablet 6.25 mg PO BID Heart 04/10/25 04/10/25 History
Disease/Condition
furosemide 20 mg tablet 20 mg PO DAILY Fluid 04/10/25 04/10/25 History
Retention/Swelling
gabapentin 100 mg capsule 100 mg PO DAILY Pain 04/10/25 04/10/25 History
ketotifen fumarate 0.025 % (0.035 1 drp ophthalmic (eye) DAILYPRN 04/10/25 04/10/25 History
%) eye drops (Zaditor) PRN itchy eyes
solifenacin 5 mg tablet 5 mg PO DAILY Urinary Issue 04/10/25 04/10/25 History
therapeutic multivitamin 1 tab PO DAILY Supplement 04/10/25 04/10/25 History
Review of Systems
-
All other systems: Negative unless noted
Physical Exam
Vital Signs
Temp Pulse Resp BP Pulse Ox
99.6 F 115 18 186/99 94
04/13/25 07:55 04/13/25 07:55 04/13/25 07:55 04/13/25 07:55 04/13/25 07:55
Lab Results
04/13/25 06:41
04/13/25 06:41
Troponin I 0.015 ng/ml 04/13/25 07:41
Hjp-M-Atit[place]uy[place] Pept 1570 pg/ml 04/13/25 07:41
Physical Exam
General: No Apparent Distress and Comfortable (Breathing on 2 litres of oxygen)
HEENT: Normocephalic and Anicteric
Respiratory: Clear and Non Labored Respirations
Cardiac: S1/S2, Regular Rhythm (tachycardia) and Other (No peripheral edema or cyanosis)
GI: Soft and Non Tender
Rectal: Deferred by Provider
Musculoskeletal: No Clubbing and No Cyanosis
Skin: Warm and Dry
Neuro: Awake and AO x 3
Psych: Calm
Impression / Plan
-
Impression
Patient is an 84-year-old female, admitted with right-sided pleuritic chest pain, currently on antibiotics for pneumonia.
Due to persistent tachycardia, oxygen requirement, evaluation for thromboembolic disease pursued. Peripheral vascular ultrasound negative for any DVT. No occlusive thrombus in pulmonary trunk. Blood pressure is on the higher side, not
hypotensive and there is no right-sided heart strain on echocardiography.
Patient is on Lovenox therapeutic dose due to high D-dimers.
Cardiology consulted to assess for acute HFpEF, based on increased proBNP, weight gain and exertional dyspnea
Assessment/plan
Essential hypertension
Tachycardia
Type 2 Diabetes mellitus
Pleuritic chest pain
High Pro-BNP levels
Patient has high blood pressure readings along with tachycardia,dose increased today,monitor for now,can increase dose of carvedilol upto 25 mg twice daily
Not sure about dry weight of the patient but she does not seem to be in volume overload
No need of diuretics
Check TSH levels
Optimize blood sugar control and blood pressure control
Follow chest CT results and decide about anticoagulation based on presence/absence of thromboembolic disease
Wean off oxygen as able
PT/OT
Leukocytosis resolved-defer to primary team regarding antibiotics
[2025-04-13 11:40] LABS: Glucose - Point of Care 252 mg/dl (70-99)
[2025-04-13] MEDS: NOVOLOG FLEXPEN-MODERATE RESISTANCE 5 UNITS SC (12:11)
[2025-04-13] MEDS: FLUSH (NSS) 2 FLUSH IV (12:12)
[2025-04-13] MEDS: STERILE WATER FOR INJECTION 10 ML IV (12:26)
[2025-04-13] MEDS: ROCEPHIN 1000 MG IV (12:26)
--- NOTE | 2025-04-13 12:35 | W.PN.PUL3 ---
Today's Communication / Plan
-
Continue Lovenox-discontinue if VQ scan is low probability or normal.
Follow VQ scan
Continue antibiotics
Analgesia
Will follow
Assessment
-
84-year-old woman with past medical history noted, admitted with right-sided pleuritic type chest pain, leukocytosis. Started on antibiotics on 04/10/2025. There is no reports of fevers or worsening phlegm production. Despite antibiotics
complaining of significant pleuritic type chest pain we were consulted for evaluation/concern for thromboembolic disease. Patient is allergic to dye.
Hypoxemic respiratory insufficiency-shortness of breath-initially on low rate supplemental oxygen mostly weaned off. Continue for comfort.
Right-sided pleuritic type chest pain-differential diagnosis includes pneumonia/pulmonary infarct less likely malignant.
Chest x-ray 04/10/2025 and 04/12/2025:reviewed, Right upper lobe pleural-based infiltrate.
Covid negative
Hyperglycemia
Abnormal LFTs
Cholelithiasis. No sonographic findings to suggest acute cholecystitis. No evidence of biliary ductal dilation.
Hepatomegaly with fatty infiltration the liver.
Conditions present prior admission:
PMR
GERD
Anxiety and depression
Cognitive impairment
Hypertension
Type 2 diabetes
Peripheral vascular disease
History of right nephrectomy
Left total knee replacement
Laminectomy
Prior appendectomy
Assessment and plan:
-
Clinical picture certainly could be related to pneumonia, including the pleuritic type chest pain.
Interestingly, there was rapid resolution of leukocytosis, patient has been afebrile without significant sputum production.
Remains afebrile.
Minimal phlegm production per
-
Differential diagnosis may include pulmonary infarct as well.
Intermittent sinus tachycardia could be from pain. Also hypertensive.
-
Pulmonary supplemental oxygen for comfort.
No prior history of clots
Patient lives independently and ambulates with a walker.
Denies prior history of pulmonary disease.
-
Echocardiogram noted: Normal RV function. No significant valvular abnormality. No pericardial effusion.
Lower extremity Dopplers negative for
D-dimer increased-nonspecific in the setting of possible pneumonia.
Troponin negative
proBNP increased to 1500
CT of the chest:
Severe multifocal pneumonia on the right. The small right pleural effusion suggestive of pleuritis. May explain pleuritic type chest pain.
-
Thromboembolic disease becomes less likely but cannot be ruled out completely. Patient
To IV dye.
Will obtain VQ scan for certainty. Clinical picture not entirely suggestive of infectious etiology due to lack of fevers but is becoming more likely.
For now maintain Lovenox-discussed with primary team
-
Continue antibiotics to cover for community-acquired pneumonia
Follow culture
Most recent chest x-ray without pneumothorax, pleural effusion. Stable pleural-based infiltrate 04/12/2025
No significant phlegm production
Relatively clear lung exam
Follow fever curve
-
Tachycardic/hypertensive: Cardiology has been consulted.
Suspect possible due to pain and infection
-
Continue with analgesia per Primary team.
-
Abnormal LFTs: Fatty liver on ultrasound
Echocardiogram with normal RV function.
-
Chronic hypercalcemia noted
-
DVT prophylaxis currently on full Lovenox until thromboembolic disease ruled out.
Will follow
Subjective Data
-
Date of Service:
Date of Service: April 13, 2025
Chief Complaint: Pulmonary Follow Up (Exertional dyspnea/pleuritic type chest pain)
Subjective:
Denies hemoptysis
Minimal phlegm production
Afebrile
Continues to report right-sided pleuritic type chest pain
Review of Systems
Cardiopulmonary: Dyspnea (Not at rest) and Dyspnea on Exertion (Due to pain)
Objective Data
Data Reviewed
Vital Signs / I&O / Oxygen:
Vital Signs
Temp Pulse Resp BP Pulse Ox
98.4 F 98 20 148/80 93
04/13/25 11:29 04/13/25 11:29 04/13/25 11:29 04/13/25 11:29 04/13/25 11:29
Intake and Output
04/12/25 04/13/25 04/14/25
06:59 06:59 06:59
Intake Total 1460 / 1460 1140 / 1140
Balance 1460 / 1460 1140 / 1140
SaO2 93
Nasal Cannula flow liters per 4
minute
Physical Exam
General: Comfortable
HEENT: Normocephalic
Cardiovascular: S1-S2 and Regular Rhythm
Respiratory: Clear, Non-Labored Respirations and Other ( Right-sided pain sharp with deep inspiration)
GI: Soft and Non Distended
Neurology: Awake
Skin: Warm
Labs/Micro/Reports
Lab Data
04/13/25 06:41
04/13/25 06:41
--- NOTE | 2025-04-13 15:02 | CM ---
CM reviewed chart, patient seen bedside, remains on 4L O2. Patient confirms she would like to discharge home with [facility], does not want to go to SNF. Watch for home O2 needs prior to d/c. CM will continue to follow for all discharge planning needs.
Plan; home with [facility], watch for home O2 needs
[2025-04-13 15:48] LABS: Troponin I < 0.012 ng/ml
[2025-04-13 17:23] LABS: Glucose - Point of Care 237 mg/dl (70-99)
[2025-04-13] MEDS: NOVOLOG FLEXPEN-MODERATE RESISTANCE 3 UNITS SC (18:43)
[2025-04-13] MEDS: LIPITOR 10 MG PO (19:52)
[2025-04-13 21:58] LABS: Glucose - Point of Care 204 mg/dl (70-99)
[2025-04-14] VITALS (7 sets, daily range): BP systolic 103–182; BP diastolic 75–92; PULSE 98; O2SAT 93; BMI 37.0
[2025-04-14 07:10] LABS: Glucose - Point of Care 185 mg/dl (70-99)
--- NOTE | 2025-04-14 07:27 | PN.DE.MGMTRT ---
Insulin Management
- -
04/14/2025 Diabetes Management Consult
Patient admitted 04/09 with r sided CP, abdominal pain - sepsis, acute hypoxic respiratory insufficiency, pneumonia. Diabetes management consult 04/14. PMH PVD, edema, colitis, diverticulosis, rectal bleeding, colon polyps, fibromyalgia, GERD, HTN,
HCL, diabetes, anxiety depression, difficulty with balance, numbness of extremities, spinal stenosis, diabetes. Prior to admission was ordered 5 mg glipizide BID, Metformin, dose unknown. A1C on admission 8.7%, cr .8, eGFR > 60.
Patient is awake alert and oriented able to discuss diabetes care. States she sees Dr. Rees, endocrine, for diabetes care. Has Celina CGM for glucose monitor.
At patient request I did call her daughter and updated her. She confirmed patient has been taking her metformin (she was not aware of dose) and glipizide prior to admission. Discussed A1C of 8.7% and that patient might benefit from Januvia. Will
assess glucose to determine addition of Januvia.
Patient has been receiving 5 mg glipizide BID, glucose range 175 to 252. Will add metformin 500 mg BID first dose this AM.
Discussed with nurse
Will follow
Diabetes History
- -
Type of Diabetes: 2
Pre-Admission Diabetes Regimen
04/13/25
06:41
Creatinine 0.8
Lab Results
Hemoglobin A1c 8.7 % (4.0-5.6) H 04/11/25 05:15
Insulin Pump Settings
IP Diabetes Regimen
04/13/25 04/13/25 04/13/25
06:41 08:09 11:38
Glucose 175 H
POC Glucose 175 H 252 H
04/13/25 04/13/25 04/14/25
17:21 21:51 07:09
Glucose
POC Glucose 237 H 204 H 185 H
Patient Education
[2025-04-14] MEDS: MUCINEX 600 MG PO ×2 (07:53→20:31)
[2025-04-14] MEDS: NEURONTIN 100 MG PO (07:54)
[2025-04-14] MEDS: COREG 12.5 MG PO ×2 (07:54→20:32)
[2025-04-14] MEDS: NORVASC 5 MG PO (07:54)
[2025-04-14] MEDS: COZAAR 50 MG PO ×2 (07:54→20:32)
[2025-04-14] MEDS: GLUCOTROL XL (EXTENDED RELEASE) 5 MG PO ×2 (07:54→20:31)
[2025-04-14] MEDS: ZITHROMAX 500 MG PO (07:54)
[2025-04-14] MEDS: PEPCID 20 MG PO (07:54)
[2025-04-14] MEDS: LEXAPRO 20 MG PO (07:54)
[2025-04-14] MEDS: GLUCOPHAGE 500 MG PO ×2 (07:55→17:26)
[2025-04-14] MEDS: NOVOLOG FLEXPEN-MODERATE RESISTANCE 1 UNITS SC ×2 (07:56→11:53)
[2025-04-14 08:24] LABS: Hematocrit 38.6 % (37.0-47.0); Hemoglobin 13.5 g/dL (12.0-16.0); Mean Corp Hgb Conc. 35.0 g/dL (33.0-37.0); Mean Corpuscular Volume 93.2 fL (81.0-99.0); Platelet Count 209 10^3/uL (130-400); Red Cell Dist. Width 13.2 % (11.5-14.5)
--- NOTE | 2025-04-14 08:27 | W.PN.HOSP.TC ---
Today's Communication/Plan
-
Wean oxygen as tolerated
Continue antibiotics
Continue pulmonary toilet
Assessment / Plan
Assessment / Plan
Physical Exam
General: Well Developed, Well Nourished, No Apparent Distress and Obese
HEENT: Normocephalic, Atraumatic and Moist Mucous Membranes
Respiratory: Decreased Breath Sounds (Rt mid lung), but otherwise clear to auscultation bilaterally
Cardiac: Regular Rhythm and S1/S2
GI: Soft, Nontender and Nondistended. Positive bowel sounds.
Musculoskeletal: No Cyanosis and No Edema
Neuro: Awake, Alert and Oriented
Assessment/Plan
Sepsis / Acute Hypoxic Respiratory Insufficiency secondary to Pneumonia
-Continue supplemental oxygen, remains on 4 L/M with SaO2 92%
-Continue IVFs
-Continue ceftriaxone and azithromycin
-COVID - Negative
-Repeat CXR with persistent pneumonia
-Given elevated D-Dimer, check V/Q scan and start empiric therapeutic Lovenox today
-CT Chest without IV contrast showed Severe multifocal pneumonia on the right. The small right pleural effusion suggestive of pleuritis. May explain pleuritic type chest pain.
-Patient has rapid resolution of leukocytosis, patient has been afebrile without significant sputum production.
Renal Cell Cancer around 2017
History of DVT decades ago when on OCPs
Elevated AST
Elevated ALT
-Not present on admission
-Hold Tylenol for now and recheck AST and ALT
-Abdominal Ultrasound on admission showed hepatomegaly with fatty infiltration the liver and two left hepatic lobe simple cysts.
-Follow CMP
Sinus Tachycardia
-Suspected from pleuritic chest pain, pneumonia
-Given concern for PE, started empiric therapeutic Lovenox -- V/Q scan suggest low probability for PE -- so will now hold/stop therapeutic Lovenox
-TSH normal
-No fever
-Appreciate cardiology to see whether a possible ACS or CHF exacerbation could be contributing
Essential Hypertension
-Continue Amlodipine, Coreg and Losartan with hold parameters
-Coreg increased on 04/13/25 for better control of heart rate and blood pressure
Diabetes Mellitus, Type II with Hyperglycemia
-Patient sees Dr. Rees, endocrine, for diabetes care.
-Initial sugar in ED 431 - Was given Novolog 10 units SC
-Patient's home medication list indicates Glipizide 5mg BID and Metformin - However this medication has not been filled since May 2024
-Continue Glipizide 5mg BID. Metformin added on 04/14/25.
-HgbA1c 8.7%
-Monitor sugars and continue coverage insulin
glu 219-268, consider adding low dose Lantus
-Appreciate Diabetes DIRECTOR CLIENT consult
Chronic Hypercalcemia
-Suspected primary hyperparathyroidism
-Calcium level seems stable compared to previous
-Intact PTH 270.6
-Will consider starting oral Vitamin D3 600 IU daily (15 to 20 micrograms daily) -- patient will need to follow-up closely with her sample worker Dr. Rees
Hyperlipidemia
-Continue atorvastatin
Cognitive Impairment
-Monitor for mood/behavior changes during hospitalization
Anxiety / Depression
-Continue Lexapro
GERD
-Continue Famotidine
Cholelithiasis on imaging
DVT prophylaxis: Lovenox
Code Status: Limited DNR - NO CPR, OK for Intubation is breathing worsens
Call placed and discussed with dgt, Yamileth Mathis MD
Anticipated Discharge: > 48 hours
Subjective/Interval History
-
Date of Service: April 14, 2025
Patient was seen and examined. She reported that her pleuritic chest pain has improved. She denied any other new symptoms or complaints.
Objective Data
-
Labs:
Laboratory Results
04/14/25
08:00
WBC 7.7
Hgb 13.5
Hct 38.6
Plt Count 209
Sodium Pending
Potassium Pending
Chloride Pending
Carbon Dioxide Pending
BUN Pending
Creatinine Pending
Glucose Pending
Calcium Pending
Total Bilirubin Pending
AST Pending
ALT Pending
Alkaline Phosphatase Pending
Vital Signs:
Vital Signs
Temp Pulse Resp BP Pulse Ox
97.5 F 92 18 160/91 95
04/14/25 03:55 04/14/25 03:55 04/14/25 03:55 04/14/25 03:55 04/14/25 03:55
I&O
04/13/25 04/14/25 04/15/25
06:59 06:59 06:59
Intake Total 1140 / 1140 240 / 240
Balance 1140 / 1140 240 / 240
[2025-04-14 09:03] LABS: ALT (SGPT) 99 U/L (0-35); AST (SGOT) 42 U/L (14-36); Albumin 3.3 g/dl (3.5-5.0); Alkaline Phosphatase 156 U/L (38-126); Blood Urea Nitrogen 16 mg/dl (7-17); Calcium 10.2 mg/dl (8.4-10.2); Carbon Dioxide 25 mmol/L (22-30); Chloride 109 mmol/L (98-107); Estimated Creatinine Clearance 57 ml/min; Glucose 196 mg/dl (70-99); Potassium 4.1 mmol/L (3.5-5.1); Sodium 140 mmol/L (135-145); Total Protein 6.6 g/dl (6.3-8.2); eGFR > 60.00
[2025-04-14 09:23] LABS: Nucleated Red Blood Cells % 0 %
[2025-04-14 11:43] LABS: Glucose - Point of Care 167 mg/dl (70-99)
[2025-04-14] MEDS: STERILE WATER FOR INJECTION 10 ML IV (11:53)
[2025-04-14] MEDS: ROCEPHIN 1000 MG IV (11:53)
--- NOTE | 2025-04-14 14:49 | W.PN.PUL3 ---
Today's Communication / Plan
-
Continue secretion clearance intervention
Continue antibiotics
Follow final cultures
Analgesia
Assessment
-
84-year-old woman with past medical history noted, admitted with right-sided pleuritic type chest pain, leukocytosis. Started on antibiotics on 04/10/2025. There is no reports of fevers or worsening phlegm production. Despite antibiotics
complaining of significant pleuritic type chest pain we were consulted for evaluation/concern for thromboembolic disease. Patient is allergic to dye.
Hypoxemic respiratory insufficiency-shortness of breath-initially on low rate supplemental oxygen mostly weaned off. Continue for comfort.
Right-sided pleuritic type chest pain-differential diagnosis includes pneumonia/pulmonary infarct less likely malignant.
Chest x-ray 04/10/2025 and 04/12/2025:reviewed, Right upper lobe pleural-based infiltrate.
Covid negative
Hyperglycemia
Abnormal LFTs
Cholelithiasis. No sonographic findings to suggest acute cholecystitis. No evidence of biliary ductal dilation.
Hepatomegaly with fatty infiltration the liver.
Conditions present prior admission:
PMR
GERD
Anxiety and depression
Cognitive impairment
Hypertension
Type 2 diabetes
Peripheral vascular disease
History of right nephrectomy
Left total knee replacement
Laminectomy
Prior appendectomy
Assessment and plan:
-
Clinical picture guido suggestive of pneumonia with a small parapneumonic effusion and pleuritis. Likely explaining right-sided pleuritic type chest pain.
Interestingly, there was rapid resolution of leukocytosis, patient has been afebrile without significant sputum production.
Remains afebrile.
Minimal phlegm production.
-
Less likely thromboembolic disease or infarct.
VQ scan low probability
Lower extremity Dopplers negative
Echocardiogram with no significant RV dysfunction. Normal LVEF.
Discontinue Lovenox
-
Pulmonary supplemental oxygen for comfort.
Denies prior history of pulmonary disease.
-
Abnormal CT chest:
CT of the chest:
Severe multifocal pneumonia on the right. The small right pleural effusion suggestive of pleuritis. May explain pleuritic type chest pain.
-
Continue antibiotics to cover for community-acquired pneumonia
Follow culture.
Most recent chest x-ray without pneumothorax, pleural effusion. Stable pleural-based infiltrate 04/12/2025.
No significant phlegm production.
Relatively clear lung exam
Follow fever curve
Pleural effusion will be performed as needed depending on symptoms and physical examination to rule out progression of pleural effusion.
-
Agree with secretion clearance interventions:
Acapella device
Nebulizer as needed
Mucolytic's
-
Tachycardic/hypertensive: Cardiology has been consulted.
Suspect possible due to pain and infection
-
Continue with analgesia per Primary team.
-
Abnormal LFTs: Fatty liver on ultrasound
Echocardiogram with normal RV function.
-
Chronic hypercalcemia noted
-
Patient will require radiographic follow-up upon discharge.
-
DVT prophylaxis-Lovenox.
Will follow
Subjective Data
-
Date of Service:
Date of Service: April 14, 2025
Chief Complaint: Pulmonary Follow Up (Exertional dyspnea/pleuritic type chest pain)
Subjective:
-
no new complaints
Continues to have some pleuritic type discomfort on the right side.
Denies hemoptysis
Minimal phlegm production
Afebrile
Review of Systems
Cardiopulmonary: Dyspnea, Dyspnea on Exertion and Cough
Objective Data
Data Reviewed
Vital Signs / I&O / Oxygen:
Vital Signs
Temp Pulse Resp BP Pulse Ox
98.8 F 89 20 147/91 95
04/14/25 11:00 04/14/25 11:00 04/14/25 11:00 04/14/25 11:00 04/14/25 11:00
Intake and Output
04/13/25 04/14/25 04/15/25
06:59 06:59 06:59
Intake Total 1140 / 1140 240 / 240
Balance 1140 / 1140 240 / 240
SaO2 95
Nasal Cannula flow liters per 4
minute
Physical Exam
General: Comfortable
HEENT: Normocephalic
Cardiovascular: S1-S2 and Regular Rhythm
Respiratory: Clear, Non-Labored Respirations and Other ( Right-sided pain sharp with deep inspiration)
GI: Soft and Non Distended
Neurology: Awake
Skin: Warm
Labs/Micro/Reports
Lab Data
04/14/25 08:00
04/14/25 08:00
--- NOTE | 2025-04-14 15:21 | CM ---
Patient seen at bedside on . Patient states she thinks she is for discharge home today and does not anticipate any VN needs, however patient had accepted [facility] referral in the recent past. Patient stated that her neighbor would transport her
when appropriate and she was given IMM form to review. CM will continue to follow for discharge planning needs.
Plan; home with [facility] vs home with no needs and watch for home O2 needs.
[2025-04-14 17:16] LABS: Glucose - Point of Care 203 mg/dl (70-99)
[2025-04-14] MEDS: NOVOLOG FLEXPEN-MODERATE RESISTANCE 3 UNITS SC (17:22)
[2025-04-14] MEDS: LOVENOX 40 MG SC (17:26)
[2025-04-14] MEDS: LIPITOR 10 MG PO (20:31)
[2025-04-14 21:07] LABS: Glucose - Point of Care 147 mg/dl (70-99)
[2025-04-15 06:00] VITALS: BMI 34.4
[2025-04-15 07:00] VITALS: BP 140/84
[2025-04-15 07:09] LABS: Glucose - Point of Care 131 mg/dl (70-99)
--- NOTE | 2025-04-15 07:28 | PN.DE.MGMTRT ---
Insulin Management
- -
04/15/2025 Diabetes Management Consult
Patient admitted 04/09 with r sided CP, abdominal pain - sepsis, acute hypoxic respiratory insufficiency, pneumonia. Diabetes management consult 04/14. PMH PVD, edema, colitis, diverticulosis, rectal bleeding, colon polyps, fibromyalgia, GERD, HTN,
HCL, diabetes, anxiety depression, difficulty with balance, numbness of extremities, spinal stenosis, diabetes. Prior to admission was ordered 5 mg glipizide BID, Metformin, dose unknown. A1C on admission 8.7%, cr .8, eGFR > 60.
Patient is awake alert and oriented able to discuss diabetes care. States she sees Dr. Rees, endocrine, for diabetes care. Has Celina CGM for glucose monitor.
At patient request I did call her daughter and updated her. She confirmed patient has been taking her metformin (she was not aware of dose) and glipizide prior to admission. Discussed A1C of 8.7% and that patient might benefit from Januvia. Will
assess glucose to determine addition of Januvia.
Patient has been receiving 5 mg glipizide BID, glucose range 175 to 203. Received 500 mg metformin. HS glucose 147.
Due to patient age and comorbidities a more liberal glucose range is acceptable; will target 180mg/dL or less.
Fasting glucose 131. Will continue glipizide and metformin.
Discussed with nurse
Will follow
Diabetes History
- -
Type of Diabetes: 2
Pre-Admission Diabetes Regimen
04/14/25
08:00
Creatinine 0.8
Lab Results
Hemoglobin A1c 8.7 % (4.0-5.6) H 04/11/25 05:15
Insulin Pump Settings
IP Diabetes Regimen
04/14/25 04/14/25 04/14/25
08:00 11:41 17:15
Glucose 196 H
POC Glucose 167 H 203 H
04/14/25 04/15/25
21:05 07:08
Glucose
POC Glucose 147 H 131 H
Meal type: Dinner
Meal type: Lunch
Meal type: Breakfast
Amount consumed: 100%
Amount consumed: 100%
Amount consumed: 100%
Patient Education
[2025-04-15 08:12] LABS: Hematocrit 39.3 % (37.0-47.0); Hemoglobin 13.2 g/dL (12.0-16.0); Mean Corp Hgb Conc. 33.6 g/dL (33.0-37.0); Mean Corpuscular Volume 94.9 fL (81.0-99.0); Nucleated Red Blood Cells % 0 %; Platelet Count 249 10^3/uL (130-400); Red Cell Dist. Width 13.3 % (11.5-14.5)
[2025-04-15] MEDS: ZITHROMAX 500 MG PO (08:16)
[2025-04-15] MEDS: NOVOLOG FLEXPEN-MODERATE RESISTANCE SC (08:16)
[2025-04-15] MEDS: MUCINEX 600 MG PO (08:17)
[2025-04-15] MEDS: COZAAR 50 MG PO (08:17)
[2025-04-15] MEDS: LEXAPRO 20 MG PO (08:18)
[2025-04-15] MEDS: COREG 12.5 MG PO (08:18)
[2025-04-15] MEDS: GLUCOTROL XL (EXTENDED RELEASE) 5 MG PO (08:18)
[2025-04-15] MEDS: NEURONTIN 100 MG PO (08:19)
[2025-04-15] MEDS: NORVASC 5 MG PO (08:19)
[2025-04-15] MEDS: GLUCOPHAGE 500 MG PO ×2 (08:19→16:31)
[2025-04-15] MEDS: PEPCID 20 MG PO (08:19)
[2025-04-15 08:57] LABS: ALT (SGPT) 76 U/L (0-35); AST (SGOT) 30 U/L (14-36); Albumin 3.3 g/dl (3.5-5.0); Alkaline Phosphatase 143 U/L (38-126); Blood Urea Nitrogen 19 mg/dl (7-17); Calcium 10.3 mg/dl (8.4-10.2); Carbon Dioxide 24 mmol/L (22-30); Chloride 110 mmol/L (98-107); Estimated Creatinine Clearance 44 ml/min; Glucose 154 mg/dl (70-99); Potassium 3.9 mmol/L (3.5-5.1); Sodium 141 mmol/L (135-145); Total Protein 6.7 g/dl (6.3-8.2); eGFR 54.87
--- NOTE | 2025-04-15 10:37 | W.PN.HOSP.TC ---
Today's Communication/Plan
-
Discharge today
Assessment / Plan
Assessment / Plan
Physical Exam
General: Well Developed, Well Nourished, No Apparent Distress and Obese
HEENT: Normocephalic, Atraumatic and Moist Mucous Membranes
Respiratory: Mildly decreased Breath Sounds (Rt mid lung), but otherwise clear to auscultation bilaterally
Cardiac: Regular Rhythm and S1/S2
GI: Soft, Nontender and Nondistended. Positive bowel sounds.
Musculoskeletal: No Cyanosis and No Edema
Neuro: Awake, Alert and Oriented
Assessment/Plan
Sepsis / Acute Hypoxic Respiratory Insufficiency secondary to Pneumonia
-Continue supplemental oxygen, remains on 4 L/M with SaO2 92%
-Continue IVFs
-Continue ceftriaxone and azithromycin --> on discharge, will do Cefpodoxime 200 mg BID for another 4 days (I communicated with erp project manager Dr. Joiner about this on the day of discharge, and
he agrees with this regimen)
-COVID - Negative
-Repeat CXR with persistent pneumonia
-CT Chest without IV contrast showed Severe multifocal pneumonia on the right. The small right pleural effusion suggestive of pleuritis. May explain pleuritic type chest pain.
-Patient had rapid resolution of leukocytosis, patient has been afebrile without significant sputum production.
Renal Cell Cancer around 2017
History of DVT decades ago when on OCPs
Elevated AST
Elevated ALT
-Not present on admission
-Hold Tylenol for now and rechecked AST and ALT
-Abdominal Ultrasound on admission showed hepatomegaly with fatty infiltration the liver and two left hepatic lobe simple cysts.
-Follow CMP outpatient
Sinus Tachycardia - RESOLVED
-Suspected from pleuritic chest pain, pneumonia
-Given concern for PE, started empiric therapeutic Lovenox -- V/Q scan suggest low probability for PE -- so will now hold/stop therapeutic Lovenox
-TSH normal
-No fever
-Appreciate cardiology to see whether a possible ACS or CHF exacerbation could be contributing
Essential Hypertension
-Continue Amlodipine, Coreg and Losartan with hold parameters
-Coreg increased on 04/13/25 for better control of heart rate and blood pressure
Diabetes Mellitus, Type II with Hyperglycemia
-Patient sees Dr. Rees, endocrine, for diabetes care.
-Initial sugar in ED 431 - Was given Novolog 10 units SC
-Patient's home medication list indicates Glipizide 5mg BID and Metformin - However this medication has not been filled since May 2024
-Continue Glipizide 5mg BID. Metformin added on 04/14/25.
-HgbA1c 8.7%
-Monitor sugars and continue coverage insulin
glu 219-268, consider adding low dose Lantus
-Appreciate Diabetes PUBLIC SERVICE ADMINISTRATOR consult
Chronic Hypercalcemia
-Suspected primary hyperparathyroidism
-Calcium level seems stable compared to previous
-Intact PTH 270.6
-Patient will need to follow-up closely with her offc spec Dr. Rees for consideration for starting Vitamin D
Hyperlipidemia
-Continue atorvastatin
Cognitive Impairment
-Monitor for mood/behavior changes during hospitalization
Anxiety / Depression
-Continue Lexapro
GERD
-Continue Famotidine
Cholelithiasis on imaging
DVT prophylaxis: Lovenox
Code Status: Limited DNR - NO CPR, OK for Intubation is breathing worsens
Call placed and discussed with dgt, Yamileth Mathis MD
More than 30 minutes spent in discharge including
Final examination of the patient
Summarizing hospital stay
Instructions for continuing care to all relevant caregivers
Preparation of discharge records, prescriptions, and referral forms
Total time spent (in minutes): 37
Anticipated Discharge: Today
Subjective/Interval History
-
Date of Service: April 15, 2025
Patient was seen and examined. She denied any shortness of breath, chest congestion or cough or any productive cough. She denied any new symptoms or complaints. She said her chest pain has improved.
Objective Data
-
Labs:
Laboratory Results
04/15/25
07:43
WBC 7.1
Hgb 13.2
Hct 39.3
Plt Count 249
Sodium 141
Potassium 3.9
Chloride 110 H
Carbon Dioxide 24
BUN 19 H
Creatinine 1.0
Glucose 154 H
Calcium 10.3 H
Total Bilirubin 0.7
AST 30
ALT 76 H
Alkaline Phosphatase 143 H
Vital Signs:
Vital Signs
Temp Pulse Resp BP Pulse Ox
98.5 F 92 16 140/84 94
04/15/25 07:00 04/15/25 07:00 04/15/25 07:00 04/15/25 07:00 04/15/25 09:04
I&O
04/14/25 04/15/25 04/16/25
06:59 06:59 06:59
Intake Total 240 / 240 1680 / 1680
Balance 240 / 240 1680 / 1680
[2025-04-15 11:08] LABS: Glucose - Point of Care 174 mg/dl (70-99)
[2025-04-15] MEDS: NOVOLOG FLEXPEN-MODERATE RESISTANCE 1 UNITS SC ×2 (12:39→16:31)
[2025-04-15] MEDS: STERILE WATER FOR INJECTION 10 ML IV (12:40)
[2025-04-15] MEDS: ROCEPHIN 1000 MG IV (12:41)
--- NOTE | 2025-04-15 12:45 | CM ---
Addendum entered by Terese Mane 04/15/25 12:54:
Spoke with patients daughter, Yamileth, email added to patient account by Managing Editor- [email or web address] Daughter requesting nurse call to review/confirm patient medications.
Original Note:
CM reviewed chart, patient seen bedside, reports she is for discharge today. Patient no longer requiring O2. Patient provided with IMM, verbally reviewed, placed in chart. Patient agreeable to [facility], will update liaison upon discharge. Patient
reports her friend will provide transportation home. Patient requesting additional copy of d/c paperwork to be sent home with her. CM will continue to follow for all discharge planning needs.
Plan; home with [facility]
--- NOTE | 2025-04-15 14:55 | W.PN.PUL3 ---
Today's Communication / Plan
-
Complete total 10 days of antibiotic with Ceftin
Close outpatient follow-up with primary care
Outpatient follow-up in 2 weeks in our office
Radiographic follow-up will be needed
Sign of
Assessment
-
84-year-old woman with past medical history noted, admitted with right-sided pleuritic type chest pain, leukocytosis. Started on antibiotics on 04/10/2025. There is no reports of fevers or worsening phlegm production. Despite antibiotics
complaining of significant pleuritic type chest pain we were consulted for evaluation/concern for thromboembolic disease. Patient is allergic to dye.
Hypoxemic respiratory insufficiency-shortness of breath-initially on low rate supplemental oxygen mostly weaned off. Continue for comfort.
Right-sided pleuritic type chest pain-differential diagnosis includes pneumonia/pulmonary infarct less likely malignant.
Chest x-ray 04/10/2025 and 04/12/2025:reviewed, Right upper lobe pleural-based infiltrate.
Covid negative
Hyperglycemia
Abnormal LFTs
Cholelithiasis. No sonographic findings to suggest acute cholecystitis. No evidence of biliary ductal dilation.
Hepatomegaly with fatty infiltration the liver.
Conditions present prior admission:
PMR
GERD
Anxiety and depression
Cognitive impairment
Hypertension
Type 2 diabetes
Peripheral vascular disease
History of right nephrectomy
Left total knee replacement
Laminectomy
Prior appendectomy
Assessment and plan:
-
Clinical picture guido suggestive of pneumonia with a small parapneumonic effusion and pleuritis. Likely explaining right-sided pleuritic type chest pain.
Interestingly, there was rapid resolution of leukocytosis, patient has been afebrile without significant sputum production.
Remains afebrile.
Minimal phlegm production.
-
Less likely thromboembolic disease or infarct.
VQ scan low probability
Lower extremity Dopplers negative
Echocardiogram with no significant RV dysfunction. Normal LVEF.
Discontinue Lovenox
-
Pulmonary supplemental oxygen for comfort.
Denies prior history of pulmonary disease.
-
Abnormal CT chest:
CT of the chest:
Severe multifocal pneumonia on the right. The small right pleural effusion suggestive of pleuritis. May explain pleuritic type chest pain.
-
Clinically improved
Completed 6-day of ceftriaxone and Zithromax
Okay to continue Ceftin at discharge for additional 4 days total of 10 days of antibiotics.
All cultures negative
Most recent chest x-ray without pneumothorax, pleural effusion. Stable pleural-based infiltrate 04/12/2025.
No significant phlegm production.
Relatively clear lung exam
Afebrile. No significant leukocytosis.
Pleural effusion will be performed as needed depending on symptoms and physical examination to rule out progression of pleural effusion-will need close outpatient follow-up, information has been left in the chart.
-
Agree with secretion-May continue at home until symptoms clear. Clearance interventions:
Acapella device
Nebulizer as needed
Mucolytic's
-
Tachycardic/hypertensive: Improved.
Suspect possible due to pain and infection
-
Abnormal LFTs: Fatty liver on ultrasound
Echocardiogram with normal RV function.
-
Chronic hypercalcemia noted
-
Patient will require radiographic follow-up upon discharge.
-
DVT prophylaxis-Lovenox.
-
Agree with discharge planning
Radiographic follow-up will be needed
Information was left in the chart for possible follow-up in our office in the next 2 to 3 weeks.
Subjective Data
-
Date of Service:
Date of Service: April 15, 2025
Chief Complaint: Pulmonary Follow Up (Exertional dyspnea/pleuritic type chest pain)
Subjective:
Patient denies any new complaints
Would like to go home
Chest pain improved
Review of Systems
Cardiopulmonary: Dyspnea (Improved) and Cough ( improved)
Objective Data
Data Reviewed
Vital Signs / I&O / Oxygen:
Vital Signs
Temp Pulse Resp BP Pulse Ox
98.5 F 92 16 140/84 94
04/15/25 07:00 04/15/25 07:00 04/15/25 07:00 04/15/25 07:00 04/15/25 09:04
Intake and Output
04/14/25 04/15/25 04/16/25
06:59 06:59 06:59
Intake Total 240 / 240 1680 / 1680
Balance 240 / 240 1680 / 1680
SaO2 94
Nasal Cannula flow liters per 2
minute
Physical Exam
General: Comfortable
HEENT: Normocephalic
Cardiovascular: S1-S2 and Regular Rhythm
Respiratory: Clear, Non-Labored Respirations and Other ( Right-sided pain sharp with deep inspiration)
GI: Soft and Non Distended
Neurology: Awake
Skin: Warm
Labs/Micro/Reports
Lab Data
04/15/25 07:43
04/15/25 07:43
[2025-04-15 15:20] VITALS: BP 153/72
--- NOTE | 2025-04-15 16:24 | W.DCSUMMARY ---
Discharge Summary
Discharge Data
Date of Admission: 04/10/25
Date of Discharge: 04/15/25
Total time spent discharging patient (in min): 37
-
Pending Results: No
Hospital Course
84 y/o female with past medical history of peripheral vascular disease, diabetes mellitus, hypertension, anxiety/depression and cognitive impairment who presented with right sided chest pain. Patient was found to have hypoxia from pneumonia and was
started on antibiotics and intravenous fluids. Patient's COVID test was negative. Given patient's sinus tachycardia and hypoxia, there was concern for pulmonary embolism, therefore patient was started on therapeutic Lovenox. Pulmonary was consulted
given patient's significant pneumonia and possible pulmonary embolism. Due to history of contrast allergy, a CT Chest for PE study with contrast could not be done. Therefore a V/Q scan was done which showed low probability of pulmonary embolism.
Patient's therapeutic Lovenox was therefore changed to prophylactic DVT prophylaxis dose. Patient's hypertension and tachycardia were likely due to her pleuritic pain from her pneumonia, and later her vital signs improved with improvement in pain
and pneumonia. Patient clinically improved with pulmonary toilet and antibiotics. Cardiology was also consulted at one point given the tachycardia and they did not think patient had acute coronary syndrome or acute heart failure. Patient had mildly
elevated in the 100-200 range so Tylenol was stopped and the numbers improved. Patient's vital signs improved and she was soon stable for discharge. Diabetes Nurse practitioner was consulted and patient was started on Metformin.
Discharge Plan
-
Patient Disposition: Home with Home Care
Discharge Diagnosis/Procedures: Right-sided pleuritic type chest pain suspected secondary to severe pneumonia
Acute Hypoxic Respiratory Insufficiency - RESOLVED - secondary to Pneumonia
Renal Cell Cancer around 2017
History of Deep Vein Thrombosis decades ago when on OCPs
Sinus Tachycardia - RESOLVED
Complete atelectasis of the right middle lobe on CT Imaging (per radiologist)
Dense airspace consolidation along the posterior aspect of the right upper lobe most likely related to pneumonia on CT Imaging (per radiologist)
Additional multifocal areas of abnormal airspace and interstitial opacity in the right upper lobe and right lower lobe as above most likely related to pneumonia on CT Imaging (per radiologist)
Very small right pleural effusion on CT Imaging (per radiologist)
Mild mediastinal adenopathy likely related to the right lung process on CT Imaging (per radiologist)
Chronic Hypercalemia
Elevated AST and ALT
Cholelithiasis
Hepatomegaly with fatty infiltration the liver
Two left hepatic lobe simple cysts
Status post right nephrectomy
Upper pole left renal cysts
PMR
GERD
Anxiety and depression
Cognitive impairment
Hypertension
Hyperlipidemia
Type 2 diabetes mellitus
Peripheral vascular disease
History of right nephrectomy
Left total knee replacement
Laminectomy
Prior appendectomy
Condition: Good
Diet: Diabetic, Carb Controlled
Activity: As tolerated
Blood Work: CBC with differential and CMP in 2 to 4 days with primary care provider's office
Other Services: VN
Activity Restrictions/Additional Instructions:
Continue to use incentive spirometer at home as instructed by hospital care team.
Need to follow-up closely with grocery store bagger for your high calcium and for consideration of vitamin D supplementation.
Referrals:
Calvin Joiner MD [Active, Pulmonary Medicine] - in two to three weeks
Referral Note: May see [facility]
Amaya Braswell MD [Family Provider, Internal Medicine] - in less than 1 week
Referral Note: Hospitalization Follow-Up
Additional Discharge Medication Instructions: Cefpodoxime is a new medication and being prescribed for another 4.5 days.
Famotidine is being held due to interaction with Cefpodoxime -- Famotidine can reduce the effectiveness/concentration of Cepfodoxime.
Carvedilol has been increased for better control of blood pressure and heart rate.
Metformin is a new medication.
Solifenacin is being held for now given that it is an anticholinergic medication and patient is elderly -- discuss with primary care provider about risks and benefits of resuming this medication.
Acetaminophen stopped in hospital due to high AST and ALT which have improved after it was stopped.
Prescriptions:
New
carvedilol 12.5 mg Tablet
12.5 mg PO BID Qty: 60 1RF
metformin 500 mg Tablet
500 mg PO BID@0800,1700 Qty: 60 1RF
guaifenesin 600 mg Tablet Extended Release 12hr
600 mg PO Q12 Qty: 14 0RF
cefpodoxime 200 mg tablet
200 mg PO BID Qty: 9 0RF
Continued
atorvastatin 10 MG tablet
10 mg PO HS
Patient Comments:
last filled 09/08
escitalopram oxalate 10 MG tablet
20 mg PO DAILY
losartan 50 MG tablet
50 mg PO BID
glipizide 5 MG tablet extended release 24hr
5 mg PO BID
Patient Comments:
last filled 06/11/24
alendronate 70 MG tablet
70 mg PO GILLAIM
docusate sodium 100 MG capsule
100 mg PO DAILYPRN PRN (Reason: constipation)
ketotifen fumarate [Zaditor] 0.025 % (0.035 %) Drops
1 drp OPHTHALMIC (EYE) DAILYPRN PRN (Reason: itchy eyes)
therapeutic multivitamin Tablet
1 tab PO DAILY
amlodipine 5 mg tablet
5 mg PO DAILY
furosemide 20 mg tablet
20 mg PO DAILY
Patient Comments:
last filled 10/10 for #90
gabapentin 100 mg capsule
100 mg PO DAILY
Held
famotidine 40 MG tablet
40 mg PO BID
Hold Instructions: Resume on 04/20/25. Being held due to interaction with Cefpodoxime. Can resume on 04/20/25.
solifenacin 5 mg tablet
5 mg PO DAILY
Hold Instructions: Resume on 04/22/25. Discuss with outpatient primary care provider and discuss with them if you should resume this anticholinergic medication.
Discontinued
carvedilol 6.25 mg tablet
6.25 mg PO BID
acetaminophen 500 mg Tablet
1,000 mg PO DAILYPRN PRN (Reason: mild pain)
Discharge Orders:
Discharge Patient (As Directed); Ordered 04/15/25
Ordered By: Loco Ortiz
Discharge Date and Time
Discharge Date/Time: 04/15/25 17:05
Print Language: CONGOLESE
[2025-04-15 16:25] LABS: Glucose - Point of Care 152 mg/dl (70-99)
== END 2025-04-15 17:05 | disposition home health service (06) | DRG 871 ==
LOC: 4 WEST ACU 12:52
PROVIDERS: Internal Medicine; Physician Assistant Medical; ADMITTING PHYSICIAN Hospitalist; ATTENDING PHYSICIAN Hospitalist; CONSULT PHYSICIAN Internal Medicine Cardiovascular Disease; CONSULT PHYSICIAN Internal Medicine Critical Care Medicine; EMERGENCY PHYSICIAN Student in an Organized Health Care Education/Training Program; FAMILY PHYSICIAN Internal Medicine
DX: A41.9 Sepsis, unspecified organism (principal); J18.9 Pneumonia, unspecified organism; J98.11 Atelectasis; Z86.718 Personal history of other venous thrombosis and embolism; R09.02 Hypoxemia; Z85.528 Personal history of other malignant neoplasm of kidney; K80.20 Calculus of gallbladder without cholecystitis without obstruction; K76.0 Fatty (change of) liver, not elsewhere classified; N28.1 Cyst of kidney, acquired; M35.3 Polymyalgia rheumatica; K21.9 Gastro-esophageal reflux disease without esophagitis; F32.A Depression, unspecified; F41.9 Anxiety disorder, unspecified; I11.0 Hypertensive heart disease with heart failure; I50.9 Heart failure, unspecified; E11.51 Type 2 diabetes mellitus with diabetic peripheral angiopathy without gangrene; Z96.652 Presence of left artificial knee joint; Z90.5 Acquired absence of kidney; Z90.49 Acquired absence of other specified parts of digestive tract; Z79.84 Long term (current) use of oral hypoglycemic drugs; Z79.83 Long term (current) use of bisphosphonates; K59.00 Constipation, unspecified; Z88.0 Allergy status to penicillin; Z88.8 Allergy status to other drugs, medicaments and biological substances; Z91.040 Latex allergy status; E11.65 Type 2 diabetes mellitus with hyperglycemia; E21.0 Primary hyperparathyroidism; Z66 Do not resuscitate; D64.9 Anemia, unspecified; E11.649 Type 2 diabetes mellitus with hypoglycemia without coma; E78.00 Pure hypercholesterolemia, unspecified; G43.909 Migraine, unspecified, not intractable, without status migrainosus; M48.00 Spinal stenosis, site unspecified; M79.7 Fibromyalgia; Z79.01 Long term (current) use of anticoagulants; Z83.3 Family history of diabetes mellitus; Z91.041 Radiographic dye allergy status; Z99.81 Dependence on supplemental oxygen; Z11.52 Encounter for screening for COVID-19
CPT/HCPCS: 71046; 71250; 76700; 78582; 80048; 80053; 82247; 82306; 82962; 83036; 83690; 83735; 83880; 83970; 84443; 84450; 84460; 84484; 85025; 85027; 85379; 86008; 87811; 92526; 92610; 93005; 93306; 93970; 96361; 96374; 96375; 97163; 97167; 97530; 97535; 99285; A9540; A9567